=== PATIENT | male | born 1950 | race Caucasian/White ===

== ENCOUNTER 2017-12-19 06:20 | Emergency (ER) | payer OTHER, SELFPAY ==
[2017-12-19 06:24] VITALS: BP 171/96; PULSE 87; RESP 16; TEMP 36.5; O2SAT 96; BMI 23.3
--- NOTE | 2017-12-19 06:37 | RAD_ITS ---
STUDY: X-RAY - PELVIS REASON FOR EXAM: Male, 67 years old. Pain TECHNIQUE: One view of the pelvis was obtained. COMPARISON: None. FINDINGS: There is a non-specific bowel gas pattern. There are atherosclerotic vascular calcifications of the pelvic arteries. There is narrowing with cortical sclerosis and osteophyte formation of the sacroiliac joint consistent with degenerative osteoarthritic changes. Normal visualized bilateral superior and inferior pubic rami. Normal pubic symphysis. Normal ischial tuberosities. Normal visualized right femoral head. Normal right acetabulum. There is mild articular joint space narrowing of the right hip. Normal visualized left femoral head. Normal left acetabulum. There is mild articular joint space narrowing of the left hip. RAD/Pelvis 1 or 2 Views IMPRESSION: Mild, age consistent arthrosis, no demonstrated fracture or aggressive osseous lesion. Electronically Signed: Pierce Soares MD at 7:48 EDT , Service support ,
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
[2017-12-19 06:38] VITALS: BP 186/96; PULSE 89; RESP 19; O2SAT 97
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
[2017-12-19 06:40] LABS: Bedside Glucose 232 mg/dL (70-110)
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
[2017-12-19 06:58] LABS: Absolute Lymphocyte Count 1.12 X10^3/ul (0.83-4.51); Absolute Neutrophil Count 8.4 X10^3/uL (2.0-7.7); Basophil# 0.04 X10^3/uL; Basophil% 0.4 % (0-1); Eosinophil# 0.15 X10^3/uL; Eosinophils% 1.4 % (0-5); Hematocrit 35.3 % (40-54); Lymphocyte # 1.12 X10^3/ul (4.0); Lymphocyte % 10.7 % (19-41); Mean Corpuscular Hgb 29.1 pg (27.0-32.0); Mean Corpuscular Volume 85.7 fL (80-94); Mean Platelet Vol. 9.6 fl (6.2-12.0); Monocyte% 6.7 % (0-10); Neutrophil # 8.37 X10^3/uL (2.7-7.7); Neutrophil % 80.3 % (47-70); Platelet Count 224 K/mm3 (150-450); RBC Distribution Width CV 11.5 % (11.6-14.6); RBC Distribution Width SD 35.2 fl (35.1-43.9); Red Blood Count 4.12 M/mm3 (4.6-6.2); White Blood Count 10.4 K/mm3 (4.4-11.0)
[2017-12-19 06:59] VITALS: BP 170/88; PULSE 89; RESP 18; O2SAT 96
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
[2017-12-19 07:00] LABS: POSITIVE COUNT NO; POSITIVE DIFFERENTIAL NO; POSITIVE MORPHOLOGY NO
[2017-12-19] MEDS: 0.9% Normal Saline 1,000 ML 999 ML IV (07:00)
[2017-12-19] MEDS: Diphth,Pertuss(Acell),Tet Vac 0.5 ML Vial IM (07:00)
[2017-12-19 07:08] LABS: International Normalized Ratio 1.2
[2017-12-19] MEDS: fentaNYL 100 MCG/2 ML Ampul 50 MCG IV ×2 (07:08→08:39)
[2017-12-19 07:09] LABS: Anion Gap 7 (5-15); BUN 23 mg/dL (7-18); BUN/Creat Ratio 15.2 RATIO (10-20); Calcium,Total 8.3 mg/dL (8.5-10.1); Chloride 108 mmol/L (98-107); Creatinine, Serum 1.51 mg/dL (0.70-1.30); EST Glomerular Filtration Rate 49 mL/min (>60); Est Glom Filt Rate - Afr Amer 59 mL/min (>60); Estimated Creatinine Clearance 42.25 ml/min; Glucose 232 mg/dL (74-106); Partial Thromboplast Time 30.4 Seconds (24.1-36.2); Potassium 3.8 mmol/L (3.5-5.1); Sodium Level 144 mmol/L (136-145)
[2017-12-19 07:10] LABS: Alcohol, Blood (Medical)-Serum < 3.0 mg/dL
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
[2017-12-19 08:06] VITALS: BP 168/91; PULSE 92; RESP 16; O2SAT 96
[2017-12-19 08:25] VITALS: BP 170/91; PULSE 91; RESP 16; O2SAT 96
== END 2017-12-19 08:50 | disposition short-term general hospital (02) ==
LOC: ED 06:48
PROVIDERS: Emergency Provider Emergency Medicine; Family Provider Family Medicine; PCP Family Medicine
DX: S02.32XA Fracture of orbital floor, left side, initial encounter for closed fracture (principal); S02.2XXA Fracture of nasal bones, initial encounter for closed fracture; S22.41XA Multiple fractures of ribs, right side, initial encounter for closed fracture; S36.112A Contusion of liver, initial encounter; S37.812A Contusion of adrenal gland, initial encounter; S01.112A Laceration without foreign body of left eyelid and periocular area, initial encounter; S51.822A Laceration with foreign body of left forearm, initial encounter; V43.52XA Car driver injured in collision with other type car in traffic accident, initial encounter; Y93.9 Activity, unspecified; Y92.9 Unspecified place or not applicable; Y99.9 Unspecified external cause status; Z23 Encounter for immunization; E11.9 Type 2 diabetes mellitus without complications; F17.200 Nicotine dependence, unspecified, uncomplicated; Z79.84 Long term (current) use of oral hypoglycemic drugs
CPT/HCPCS: 70450; 71045; 71260; 72125; 72170; 73090; 73590; 74177; 80048; 80320; 82962; 85025; 85610; 85730; 90715; 93005; 96361; 96374; 96376; 99285; J7030; Q9967; A4216; G0480

== ENCOUNTER 2018-05-20 09:58 | Day surgery (SDC) | payer OTHER, SELFPAY ==
[2018-05-20 10:26] VITALS: BP 130/75; PULSE 72; RESP 16; TEMP 36.7; O2SAT 99; BMI 22.5
[2018-05-20 10:36] LABS: Bedside Glucose 129 mg/dL (70-110)
--- NOTE | 2018-05-20 12:14 | LES_PTH ---
PATIENT: KYLIE DURBIN LOC: [facility] [place] U#:[id number] AGE/SX: 67/M ROOM: RE05/20/[address]: Dr. Andrea Kumar MD : 1950 BED: DIS: 05/20/2018 SPEC #: [id number] RECD: 05/20/18 12:19 STATUS: GOLD HUONG #: [id number] STEFFANIE: 05/20/18 12:[address]: Andrea Kumar DEPT: SURGICAL PATHOLOGY RECD BY: Dillan Vu ENTERED: 05/20/18 13:29 SP TYPE: Lesion OTHR DR: Dr. Gasper Kenny MD Tissues: A - Skin of wrist and hand B - Skin of forearm, NOS C - Skin of forearm, NOS D - Skin of wrist and hand Procedures: Frozen Section (charge) Surgery Specimen Level IV Frozen (no charge) HEADER OPERATION: Excision of actinic keratosis, right wrist with frozen section PRE-OP DIAGNOSIS: Lesion dorsal radial aspect, right wrist, lesion dorsal ulnar aspect mid left forearm, personal history of skin can cancer POST-OP DIAGNOSIS: Actinic keratosis dorsal ulnar aspect mid left forearm, actinic keratosis dorsal radial aspect right wrist TISSUE SUBMITTED: A. Dorsal radial aspect, right wrist, FS, B. Dorsal ulnar aspect mid left forearm lesion, FS, C. Actinic keratosis dorsal ulnar aspect mid left forearm, suture at 12 o'clock, D. Actinic keratosis dorsal radial aspect, right wrist, suture at 12 o'clock FROZEN SECTION DIAGNOSIS A. Right wrist skin lesion, shave biopsy: Actinic change, solar elastosis B. Left forearm skin lesion, shave biopsy: Actinic change, solar elastosis AM:nupur 05/20/18 MICROSCOPIC DIAGNOSIS A. Skin lesion dorsal radial aspect of right wrist, shave biopsy: Actinic keratosis, hyperkeratosis and solar elastosis. B. Skin lesion ulnar aspect of mid left forearm, shave biopsy: Actinic keratosis and solar elastosis. MERYL:tali 05/21/18 MICROSCOPIC DESCRIPTION Slides are reviewed. GROSS DESCRIPTION A. Received fresh for frozen section diagnosis labeled with the patient's name is a specimen designated dorsal radial aspect right wrist lesion. The specimen consists of a shave biopsy of quezada-white skin measuring 1 x 0.6 x 0.1 cm. The specimen is inked, bisected and submitted entirely for frozen section diagnosis in one cassette. B. Received fresh for frozen section diagnosis labeled with the patient's name is a specimen designated dorsal ulnar aspect mid left forearm lesion. The specimen consists of a shave biopsy of quezada-white skin measuring 0.7 x 0.5 x 0.1 cm. The specimen is inked, bisected and submitted entirely for frozen section diagnosis in one cassette. /05/20/18 TC: 3 C. Received in fixative is one container labeled with the patient's name and designated actinic keratoses dorsoulnar aspect mid right forearm, suture at 12 o'clock. The specimen consists of a quezada-white skin ellipse measuring 3 x 0.7 cm and 0.2 cm in thickness. The specimen is oriented by a suture at 12 o'clock. The specimen is inked as follows: 12 o'clock - yellow, 6 o'clock - green, 3 o'clock margin - black, 9 o'clock margin - blue. Focal area of ulceration is noted. The entire specimen is submitted as follows: 1 - six and twelve o'clock, 2 - rest of the specimen. These will be sectioned at the time of embedding. D. Received in fixative is one container labeled with the patient's name and designated actinic keratosis dorsal radial aspect right wrist, suture at 12 o'clock. The specimen consists of an irregular piece of quezada-white skin measuring 1.5 x 1 cm and up to 0.2 cm in thickness. The specimen is inked as follows: 12 o'clock margin - black, 6 o'clock margin - blue, 3 o'clock margin - green, 9 o'clock margin - yellow. Focal area of ulceration is noted on the surface. The entire specimen is submitted in 1 cassette. It will be serially sectioned at the time of embedding. :sp 05/21/18 TC: CPT: 70758 x2, 41948 x2 ADDENDUM ADDENDUM ADDENDUM ADDENDUM ADDENDUM ADDENDUM ADDENDUM ADDENDUM ADDENDUM ADDENDUM ADDENDUM ADDENDUM 05/23/2018 14:29 ADDENDUM 05/23/2018 14:29 ADDENDUM 05/23/2018 14:29 ADDENDUM 05/23/2018 14:29 ADDENDUM 05/23/2018 14:29 C. Skin lesion, ulnar aspect mid left forearm, excision: Ulcer consistent with recent biopsy. Actinic change and solar elastosis. D. Radial aspect right wrist, excision: Ulcer consistent with recent biopsy. Actinic change and solar elastosis. AM:tali 05/23/18 Case has been reviewed in consultation with Dr. Ojeda who concurs with the above diagnosis. IDC:SJ
[2018-05-20] MEDS: Mupirocin Ointment 22gm Tube 1 APPLIC (13:00)
--- NOTE | 2018-05-20 13:19 | OP.PN_ITS ---
Immediate Post-Op Note Date of Procedure: 05/20/18 Primary Surgeon/Physician: Andrea Kumar carbon electrodes supervisor: None Pre-Operative Diagnosis: 1. 8 mm pigmented lesion dorsal radial aspect right wrist. 2. 6 mm nodular lesion dorsal ulnar aspect mid left forearm. 3. Personal history of skin cancer. 4. Former smoker. Post-Operative Diagnosis: 1. 8 mm actinic keratosis dorsal radial aspect right wrist. 2. 6 mm actinic keratosis dorsal ulnar aspect mid left forearm. 3. Personal history of skin cancer. 4. Former smoker. Surgery/Procedure Performed:: 1. Excision 8 mm actinic keratosis dorsal radial aspect right wrist with rhomboid transposition skin flap reconstruction. 2. Excision 6 mm actinic keratosis dorsal ulnar aspect mid left forearm with 3 cm layered closure. Description of Surgical Findings:: 67 year old man presents for evaluation for TBSE. He has recently used Aldara cream on his nasal dorsum with a good response with redness and inflammation. He also noticed an area of rough skin on his right lateral forehead that he also used Aldara on. He comes in with concerns that he is having a bad reaction to the Aldara cream. I reassured him it was a common response. Some patients have more of a response and some have a lesser response. He states the lesions on his dorsal radial aspect right wrist and dorsal ulnar aspect mid left forearm have not changed since his last visit a month ago. He is scheduled for surgery next week on 05/20/18. Today the redness and inflammation from the Aldara is still present on the nasal dorsum and right lateral forehead so no biopsies in these areas will be done today. 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 He denies any fever. He denies any trauma. He had the lesions on the dorsal ulnar aspect mid left forearm and dorsal radial aspect right wrist excised and sent to Pathology as a frozen section. Frozen section showed the dorsal ulnar aspect mid left forearm lesion was an actinic keratosis and the dorsal radial aspect right wrist lesion was an actinic keratosis. Today the patient underwent excision 8 mm actinic keratosis dorsal radial aspect right wrist with rhomboid transposition skin flap reconstruction and excision 6 mm actinic keratosis dorsal ulnar aspect mid left forearm with 3 cm layered closure. Frozen section dorsal ulnar aspect mid left forearm - actinic keratosis. Frozen section dorsal radial aspect right wrist - actinic keratosis. Estimated Blood Loss: 10 ml. Specimen's removed: 1. Lesion dorsal ulnar aspect mid left forearm to Pathology as a frozen section. 2. Lesion dorsal radial aspect right wrist to Pathology as a frozen section. 3. Actinic keratosis dorsal ulnar aspect mid left forearm to Pathology. 4. Actinic keratosis dorsal radial aspect right wrist to Pathology. Drains: None. Type of Anesthesia:: Local MAC - xylocaine with epinephrine and IV sedation. - Admit VTE Documentation VTE Present on Admission: No VTE Mechan Device Prophylaxis: SCD's VTE Pharm Prophylaxis ordered?: No
[2018-05-20 13:20] VITALS: BP 116/62; BP 130/75; PULSE 67; RESP 16; TEMP 36.6; O2SAT 95
[2018-05-20 13:25] VITALS: BP 115/79; BP 130/75; PULSE 69; RESP 16; O2SAT 96
--- NOTE | 2018-05-20 13:25 | PCM.DC ---
You will use the following diet at home:: No restrictions Discharge Activity: May not drive while taking narcotic pain medications., May Shower - in two days., - - no heavy lifting. elevate arms when sitting. May shower in (days): 2 May resume sexual activity in: No Restrictions Weight Bearing Status: Weight bearing as tolerated Lifting Restrictions: 20 lbs. Keep extremity elevated above heart level: Arms Call your doctor if your incision/area has: Continuous Slow Oozing, Sudden Increased Bleeding, Increased Pain/ Swelling, Increased Redness, Foul Smelling Discharge, Swelling at the incision site Call your doctor if you observe: Fever of 101 or Higher, Coldness, Increased Pain, Shortness of breath, Chest pain, Calf discomfort, Uncontrolled pain Suture Line Care: - - after dressing removed in two days, apply antibiotic ointment to suture line daily. Change Dressing in (Days):: 2 Cleanse incision/area with: - - may get incisions wet in the shower in two days. Allergies/Adverse Reactions: Allergies Sulfa (Sulfonamide Antibiotics) Allergy (Verified 05/15/18 16:46) Rash Medications to take at Discharge Metformin HCl [Glucophage] 500 mg PO DAILY 12/19/17 Vit C/E/Zn/Coppr/Lutein/Zeaxan [Preservision Areds 2 Softgel] 1 ea PO DAILY 05/13/18 Cefadroxil [Duricef] 500 mg PO BID #10 cap 05/20/18 Lactobacillus Acidophilus/Fos [Acidophilus Probiotic Tablet] 1 ea PO BID #10 tab 05/20/18 Oxycodone HCl/Acetaminophen [Percocet 5/325] 1 tab PO 4X/DAY PRN PRN 7 Days #30 tab 05/20/18 The following prescriptions were given: Oxycodone HCl/Acetaminophen [Percocet 5/325] 1 tab PO 4X/DAY PRN PRN 7 Days #30 tab PRN Reason: Pain Cefadroxil [Duricef] 500 mg PO BID #10 cap Lactobacillus Acidophilus/Fos [Acidophilus Probiotic Tablet] 1 ea PO BID #10 tab Primary Care Physician: Gasper Kenny MD [Primary Care Provider] - Test Results: Test results from this visit will be discussed in further detail at your follow-up appointment, if applicable. Please Follow Up With: Andrea Kumar MD When: one week. call [phone] for appt. Proposed Discharge Date: 05/20/18
--- NOTE | 2018-05-20 13:28 | DCINST_ITS ---
You will use the following diet at home:: No restrictions Discharge Activity: May not drive while taking narcotic pain medications., May Shower - in two days., - - no heavy lifting. elevate arms when sitting. May shower in (days): 2 May resume sexual activity in: No Restrictions Weight Bearing Status: Weight bearing as tolerated Lifting Restrictions: 20 lbs. Keep extremity elevated above heart level: Arms Call your doctor if your incision/area has: Continuous Slow Oozing, Sudden Increased Bleeding, Increased Pain/ Swelling, Increased Redness, Foul Smelling Discharge, Swelling at the incision site Call your doctor if you observe: Fever of 101 or Higher, Coldness, Increased Pain, Shortness of breath, Chest pain, Calf discomfort, Uncontrolled pain Suture Line Care: - - after dressing removed in two days, apply antibiotic ointment to suture line daily. Change Dressing in (Days):: 2 Cleanse incision/area with: - - may get incisions wet in the shower in two days. Allergies/Adverse Reactions: Allergies Sulfa (Sulfonamide Antibiotics) Allergy (Verified 05/15/18 16:46) Rash Medications to take at Discharge Metformin HCl [Glucophage] 500 mg PO DAILY 12/19/17 Vit C/E/Zn/Coppr/Lutein/Zeaxan [Preservision Areds 2 Softgel] 1 ea PO DAILY 05/13/18 Cefadroxil [Duricef] 500 mg PO BID #10 cap 05/20/18 Lactobacillus Acidophilus/Fos [Acidophilus Probiotic Tablet] 1 ea PO BID #10 tab 05/20/18 Oxycodone HCl/Acetaminophen [Percocet 5/325] 1 tab PO 4X/DAY PRN PRN 7 Days #30 tab 05/20/18 The following prescriptions were given: Oxycodone HCl/Acetaminophen [Percocet 5/325] 1 tab PO 4X/DAY PRN PRN 7 Days #30 tab PRN Reason: Pain Cefadroxil [Duricef] 500 mg PO BID #10 cap Lactobacillus Acidophilus/Fos [Acidophilus Probiotic Tablet] 1 ea PO BID #10 tab Primary Care Physician: Gasper Kenny MD [Primary Care Provider] - Test Results: Test results from this visit will be discussed in further detail at your follow- up appointment, if applicable. Please Follow Up With: Andrea Kumar MD When: one week. call [phone] for appt. Proposed Discharge Date: 05/20/18
[2018-05-20 13:30] VITALS: BP 130/75; BP 135/81; PULSE 67; RESP 16; O2SAT 95
[2018-05-20 13:35] VITALS: BP 122/75; BP 130/75; PULSE 68; RESP 16; TEMP 36.9; O2SAT 96
--- NOTE | 2018-05-20 13:40 | PCM.WORK.EX ---
Work/School Excuse Work/School Excuse for:: Patient Please excuse this person from:: Work From: 05/20/18 through: 05/22/18 Restrictions: Other - keep incisions covered with lilia wraps while working.
[2018-05-20 14:27] VITALS: BP 130/75
--- NOTE | 2018-05-20 22:03 | PCM.OPRPT ---
Report of Operation Date of Procedure: 05/20/18 Pre-Operative Diagnosis: 1. 8 mm pigmented lesion dorsal radial aspect right wrist. 2. 6 mm nodular lesion dorsal ulnar aspect mid left forearm. 3. Personal history of skin cancer. 4. Former smoker. Post-Operative Diagnosis: 1. 8 mm actinic keratosis dorsal radial aspect right wrist. 2. 6 mm actinic keratosis dorsal ulnar aspect mid left forearm. 3. Personal history of skin cancer. 4. Former smoker. Surgery/Procedure Performed:: 1. Excision 8 mm actinic keratosis dorsal radial aspect right wrist with rhomboid transposition skin flap reconstruction. 2. Excision 6 mm actinic keratosis dorsal ulnar aspect mid left forearm with 3 cm layered closure. Description of Surgical Findings:: 67 year old man presents for evaluation for TBSE. He has recently used Aldara cream on his nasal dorsum with a good response with redness and inflammation. He also noticed an area of rough skin on his right lateral forehead that he also used Aldara on. He comes in with concerns that he is having a bad reaction to the Aldara cream. I reassured him it was a common response. Some patients have more of a response and some have a lesser response. He states the lesions on his dorsal radial aspect right wrist and dorsal ulnar aspect mid left forearm have not changed since his last visit a month ago. He is scheduled for surgery next week on 05/20/18. Today the redness and inflammation from the Aldara is still present on the nasal dorsum and right lateral forehead so no biopsies in these areas will be done today. 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 He denies any fever. He denies any trauma. Patient was informed of the risks and complications of the procedure including alternatives to surgery. These were discussed with the patient personally. Patient voices understanding and wishes to proceed. Some of the risks and complications were included in a form from the [employer]. Frozen section dorsal ulnar aspect mid left forearm - actinic keratosis. Frozen section dorsal radial aspect right wrist - actinic keratosis. 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 Specimen's removed: 1. Lesion dorsal ulnar aspect mid left forearm to Pathology as a frozen section. 2. Lesion dorsal radial aspect right wrist to Pathology as a frozen section. 3. Actinic keratosis dorsal ulnar aspect mid left forearm to Pathology. 4. Actinic keratosis dorsal radial aspect right wrist to Pathology. Drains: None. Estimated Blood Loss (mL): 10 ml. Description of Procedure: Patient was taken to OR in supine position and was given IV sedation. The left forearm and right wrist were prepped and draped in the usual fashion. SCD's were placed for DVT prophylaxis. Perioperative antibiotics were given intravenously. The lesions dorsal ulnar aspect mid left forearm and dorsal radial aspect right wrist were infiltrated with xylocaine and epinephrine. After waiting 5 minutes for the anesthetic to take effect, both lesions were excised in an intradermal fashion. They were sent to Pathology as a frozen section. Frozen section showed the lesions dorsal ulnar aspect mid left forearm and dorsal radial aspect right wrist were both actinic keratoses. So further excision will be done. The actinic keratoses were excised with a 2 mm margin in all directions thus making the dorsal ulnar aspect mid left forearm lesion a 1 cm excision with 3 cm layered closure and the dorsal radial aspect right wrist lesion a 1.2 cm excision with rhomboid skin flap reconstruction. The lesions were excised into the subcutaneous tissue. A suture was marked at the 12 oclock position for pathology orientation. The lesions were then sent to Pathology for analysis to rule out carcinoma. For the dorsal ulnar aspect mid left forearm lesion a 3 cm oblique elliptical excision was done. For the dorsal radial aspect right wrist lesion a rhomboid excision was done. A rhomboid flap was designed adjacent to the lesion. Incisions were made and the flap was elevated on a subcutaneous pedicle at the level of the muscular fascia. The rhomboid flap was easily transposed into the defect with minimal tension and minimal distortion. Hemostasis was obtained with electrocautery for both lesions. Both wounds were closed in a layered closure fashion with 5-0 Monocryl interrupted sutures for the deep dermis and subcutaneous tissue. The skin was approximated with 5-0 Prolene simple interrupted sutures. Antibiotic ointment was applied to the incisions followed by gauze dressing and compression lilia wraps. Patient tolerated the procedure well and was sent to PACU in satisfactory condition. Patient will be sent home on antibiotics and pain medication. Patient will keep his hands elevated when sitting. Patient will followup in a week for a wound check and for discussion of the pathology report. The sutures will be removed in two weeks. Grafts/Implants Used: None. - Complications None. - Admit VTE Documentation VTE Present on Admission: No VTE Mechan Device Prophylaxis: SCD's VTE Pharm Prophylaxis ordered?: No Code Visit Surgery Charges CPT - 97028 ICD-10 - L57.0, Z85.828, Z87.891 40442 L57.0, Z85.828, Z87.891 20514 L57.0, Z85.828, Z87.891
== END 2018-05-20 14:28 | disposition home or self-care (01) ==
LOC: SDC 09:58 → AC 10:00
PROVIDERS: Family Provider Family Medicine; PCP Family Medicine; Referring Provider Surgery; Visit Provider Surgery
PROC: (CPT 11401; principal; 2018-05-20 11:15)
DX: L57.0 Actinic keratosis (principal); L85.9 Epidermal thickening, unspecified; L57.8 Other skin changes due to chronic exposure to nonionizing radiation; W89.9XXA Exposure to unspecified man-made visible and ultraviolet light, initial encounter; Y93.9 Activity, unspecified; Y92.9 Unspecified place or not applicable; Y99.9 Unspecified external cause status; E11.9 Type 2 diabetes mellitus without complications; R35.0 Frequency of micturition; Z79.84 Long term (current) use of oral hypoglycemic drugs; Z79.899 Other long term (current) drug therapy; Z85.828 Personal history of other malignant neoplasm of skin; Z87.891 Personal history of nicotine dependence
CPT/HCPCS: 00400; 11401; 12032; 14020; 82962; 88305; 88331; J7120

== ENCOUNTER → 2018-10-04 08:52 | Outpatient (CLI) | payer OTHER, SELFPAY ==
[2018-08-28 15:51] VITALS: BMI 24.1
[2018-10-04 09:39] LABS: Color, Urine Yellow (Yellow); Glucose, Dipstick 50 mg/dl (Normal); Ketone-Dipstick Negative (Negative); Leukocyte Esterase-Dipstick Negative /ul (Negative); Nitrite-Dipstick Negative (Negative); Occult Blood-Urine Negative /ul (Negative); Protein-Dipstick Negative (Negative); Specific Gravity, Urine 1.015 (1.002-1.030); Urine Bilirubin Dipstick Negative (Negative); Urine Clarity Clear (Clear); Urine Urobilinogen Normal (Normal)
[2018-10-04 09:40] LABS: Absolute Lymphocyte Count 1.27 X10^3/ul (0.83-4.51); Absolute Neutrophil Count 3.3 X10^3/uL (2.0-7.7); Basophil# 0.05 X10^3/uL; Eosinophil# 0.18 X10^3/uL; Eosinophils% 3.4 % (0-5); Hemoglobin 13.3 g/dl (13.0-16.5); Lymphocyte # 1.27 X10^3/ul (4.0); Lymphocyte % 24.1 % (19-41); Mean Corp Hgb Conc 34.1 g/gl (32-36); Mean Corpuscular Hgb 28.4 pg (27.0-32.0); Mean Corpuscular Volume 83.2 fL (80-94); Mean Platelet Vol. 9.9 fl (6.2-12.0); Monocyte% 9.5 % (0-10); Neutrophil # 3.25 X10^3/uL (2.7-7.7); Neutrophil % 61.8 % (47-70); POSITIVE COUNT NO; POSITIVE DIFFERENTIAL NO; POSITIVE MORPHOLOGY NO; Platelet Count 229 K/mm3 (150-450); RBC Distribution Width CV 11.8 % (11.6-14.6); RBC Distribution Width SD 35.6 fl (35.1-43.9); Red Blood Count 4.69 M/mm3 (4.6-6.2); White Blood Count 5.3 K/mm3 (4.4-11.0)
[2018-10-04 10:02] LABS: Hemoglobin A1c 7.7 % (4.2-6.3)
[2018-10-04 10:08] LABS: AST(SGOT) 15 U/L (15-37); Alanine Aminotransfer ALT/SGPT 18 U/L (16-61); Albumin, Serum 3.6 g/dL (3.2-5.0); Alkaline Phosphatase 73 U/L (45-117); Anion Gap 6 (5-15); BUN 35 mg/dL (7-18); BUN/Creat Ratio 22.4 RATIO (10-20); Calcium,Total 8.8 mg/dL (8.5-10.1); Chloride 107 mmol/L (98-107); Cholesterol 161 mg/dL (200); Creatinine, Serum 1.56 mg/dL (0.70-1.30); EST Glomerular Filtration Rate 47 mL/min (>60); Est Glom Filt Rate - Afr Amer 57 mL/min (>60); Globulin 3.6 g/dL (2.2-4.2); Glucose 136 mg/dL (74-106); High Density Lipoprotein 43 mg/dL; PSA,Total - Annual Screen 1.24 ng/mL (0.00-4.00); Potassium 4.6 mmol/L (3.5-5.1); Protein, Total 7.2 g/dL (6.4-8.2); Sodium Level 141 mmol/L (136-145); Triglycerides 97 mg/dL; Very Low Density Lipoprotein 19 mg/dL (5-40)
== END ==
PROVIDERS: Family Provider Family Medicine; PCP Family Medicine; Referring Provider Family Medicine; Visit Provider Family Medicine
DX: Z00.00 Encounter for general adult medical examination without abnormal findings (principal); E11.65 Type 2 diabetes mellitus with hyperglycemia; Z12.5 Encounter for screening for malignant neoplasm of prostate
CPT/HCPCS: 36415; 80053; 80061; 81002; 83036; 84153; 85025; G0103

== ENCOUNTER → 2019-05-25 16:18 | Outpatient (CLI) | payer OTHER, SELFPAY ==
[2019-03-12 16:43] VITALS: BMI 24.1
--- NOTE | 2019-05-25 16:21 | US_ITS ---
STUDY: RENAL ULTRASOUND - COMPLETE REASON FOR EXAM: Male, 68 years old. Back pain TECHNIQUE: Ultrasound evaluation of the kidneys was performed with real-time and static nagel-scale imaging. COMPARISON: CT abdomen and pelvis 12/19/2017. FINDINGS: RIGHT KIDNEY: Normal location of the right kidney, which is normal in size. The right kidney measures 10 cm. There is a normal cortex of the right kidney. The renal cortex measures 1.2 cm. There are right renal cysts largest measuring 2.5 x 2.5 x 2.1 cm. There are smaller subcentimeter cysts some of which are too small to characterize. There are punctate echogenic foci within the right kidney. There is no right hydronephrosis. DISTAL RIGHT URETER: There is nonvisualization of the distal right ureter or ureteral jet.. LEFT KIDNEY: Normal location of the left kidney, which is normal in size. The left kidney measures 11 cm. There is a normal cortex of the left kidney. The renal cortex measures 1.6 cm. There is no left renal mass or cyst. There are punctate echogenic foci within the left kidney. There is mild left hydronephrosis. DISTAL LEFT URETER: There is non-visualization of the distal left ureter. No ureteral jet is visualized. BLADDER: The distended urinary bladder has a volume of 28.91 ml. The empty urinary bladder has a volume of 6.9 ml. There is a normal wall thickness of the distended urinary bladder. There is no demonstrated mass within the urinary bladder. There are no demonstrated bladder calculi. US/Kidney and Bladder IMPRESSION: Right renal cysts Punctate bilateral echogenic foci, renal calculi versus vasculature Nonvisualization of the bilateral ureters, no ureteral jets Mild left hydronephrosis, that should be further evaluated with CT abdomen and pelvis to exclude obstruction Electronically Signed: Gume Hernandez, at 1:36 EST Tel , Service support ,
[2019-05-25 18:07] LABS: Anion Gap 5 (5-15); BUN 29 mg/dL (7-18); BUN/Creat Ratio 20.3 RATIO (10-20); Calcium,Total 8.9 mg/dL (8.5-10.1); Chloride 107 mmol/L (98-107); Creatinine, Serum 1.43 mg/dL (0.70-1.30); EST Glomerular Filtration Rate 52 mL/min (>60); Est Glom Filt Rate - Afr Amer 63 mL/min (>60); Glucose 111 mg/dL (74-106); Potassium 3.8 mmol/L (3.5-5.1); Sodium Level 140 mmol/L (136-145)
[2019-05-27 16:08] LABS: Cytoplasmic Ab (C-ANCA) <1:20 titer (Neg:<1:20); PROEL- A/G Ratio 1.2 (0.7-1.7); PROEL- Albumin 3.8 g/dL (2.9-4.4); PROEL- Alpha-1 Globulin 0.2 g/dL (0.0-0.4); PROEL- Alpha-2 Globulin 0.6 g/dL (0.4-1.0); PROEL- Beta Globulin 0.9 g/dL (0.7-1.3); PROEL- Gamma Globulin 1.4 g/dL (0.4-1.8); PROEL- Globulin, Total 3.1 g/dL (2.2-3.9); PROEL- TOTAL PROTEIN 6.9 g/dL (6.0-8.5)
[2019-05-27 18:46] LABS: Complement C3 84 mg/dL (82-167); Perinuclear Ab (P-ANCA) <1:20 titer (Neg:<1:20)
== END ==
PROVIDERS: Family Provider Family Medicine; PCP Family Medicine; Referring Provider Internal Medicine Nephrology; Visit Provider Internal Medicine Nephrology
DX: N18.3 Chronic kidney disease, stage 3 (moderate) (principal)
CPT/HCPCS: 36415; 76770; 80048; 84165; 86160; 86256

== ENCOUNTER → 2019-06-01 17:53 | Outpatient (CLI) | payer OTHER, SELFPAY ==
[2019-03-12 16:43] VITALS: BMI 24.1
--- NOTE | 2019-06-01 17:58 | CT_ITS ---
STUDY: CT ABDOMEN AND PELVIS WITHOUT CONTRAST REASON FOR EXAM: Male, 68 years old. Hydronephrosis, right flank pain RADIATION DOSAGE (If Supplied By Facility): CTDIvol = ( 6.05 ) mGy, DLP = ( 291.83 ) mGycm TECHNIQUE: Transaxial images were obtained from the dome of the diaphragm to the symphysis pubis without oral contrast, and without intravenous contrast. Sagittal and coronal images were reconstructed. Individualized dose optimization techniques were used for this CT. COMPARISON: 19 December 2017 FINDINGS: The visualized lung bases are unremarkable. The visualized portions of the heart are within normal limits. Normal liver. Normal gallbladder and extrahepatic biliary system. Normal spleen. Normal pancreas. Normal bilateral adrenal glands. There is a simple right renal cyst. There is left pelviectasis without hydronephrosis. There are no urinary calculi or hydronephrosis. Normal visualized stomach. Normal small intestine. Normal colon. The appendix is visualized and appears normal. Normal abdominal aorta. Normal inferior vena cava. Normal retroperitoneum. Normal urinary bladder. Normal abdominal wall. Normal osseous structures. There is stable grade 1 anterolisthesis of L4 on L5 with mild thecal sac stenosis. CT/Abdomen/Pelvis without Cont IMPRESSION: No acute abdominal findings. Electronically Signed: Carlton Richardson, at 18:22 EST Tel , Service support ,
== END ==
PROVIDERS: Family Provider Family Medicine; PCP Family Medicine; Referring Provider Internal Medicine Nephrology; Visit Provider Internal Medicine Nephrology
DX: N13.30 Unspecified hydronephrosis (principal)
CPT/HCPCS: 74176

== ENCOUNTER → 2019-12-03 15:54 | Outpatient (CLI) | payer OTHER, SELFPAY ==
[2019-03-12 16:43] VITALS: BMI 24.1
[2019-12-03 16:33] LABS: Hemoglobin 12.6 g/dL (13.0-16.5); Mean Corp Hgb Conc 33.2 g/dL (32-36); Mean Corpuscular Hgb 28.8 pg (27.0-32.0); Mean Corpuscular Volume 86.8 fL (80-94); Mean Platelet Vol. 9.7 fl (6.2-12.0); Platelet Count 217 K/mm3 (150-450); RBC Distribution Width CV 11.4 % (11.6-14.6); RBC Distribution Width SD 36.5 fl (35.1-43.9); Red Blood Count 4.38 M/mm3 (4.6-6.2); White Blood Count 5.8 K/mm3 (4.4-11.0)
[2019-12-03 17:01] LABS: PTHIN 95.3 pg/mL (18.4-80.1)
[2019-12-03 17:04] LABS: Vitamin D,25 Hydroxy 33.2 ng/mL
[2019-12-03 17:09] LABS: Albumin, Serum 3.8 g/dL (3.2-5.0); BUN 28 mg/dL (7-18); BUN/Creat Ratio 17.5 RATIO (10-20); Calcium,Total 8.6 mg/dL (8.5-10.1); Chloride 103 mmol/L (98-107); EST Glomerular Filtration Rate 46 mL/min (>60); Est Glom Filt Rate - Afr Amer 55 mL/min (>60); Glucose 121 mg/dL (74-106); Phosphorus 2.6 mg/dL (2.5-4.9); Potassium 4.6 mmol/L (3.5-5.1); Sodium Level 137 mmol/L (136-145)
[2019-12-03 17:39] LABS: Protein, Urine (Random) 11.6 mg/dL (<11.9); Protein:Creat Ratio 194 mg/g CRE (0-200)
== END ==
PROVIDERS: Visit Provider Internal Medicine Nephrology
DX: N18.3 Chronic kidney disease, stage 3 (moderate) (principal)
CPT/HCPCS: 36415; 80069; 82306; 82570; 83970; 84156; 85027

== ENCOUNTER 2020-03-11 08:35 | Day surgery (SDC) | payer OTHER, SELFPAY ==
[2020-02-18 16:25] VITALS: BMI 24.1
--- NOTE | 2020-03-11 | LES_PTH ---
PATIENT: KYLIE DURBIN LOC: [facility] [place] U#:[id number] AGE/SX: 69/M ROOM: RE03/11/[address]: Dr. Andrea Kumar MD : 1950 BED: DIS: 03/11/2020 SPEC #: [id number] RECD: 03/11/20 10:52 STATUS: GOLD HUONG #: [id number] STEFFANIE: 03/11/20 00:[address]: Andrea Kumar DEPT: SURGICAL PATHOLOGY RECD BY: Lizzette Bernal ENTERED: 03/11/20 11:57 SP TYPE: Lesion OTHR DR: Dr. Gasper Kenny MD Tissues: Skin of hand and finger, NOS Procedures: Frozen Section (charge) Surgery Specimen Level IV HEADER OPERATION: Excision cutaneous horn lesion dorsum hand near wrist PRE-OP DIAGNOSIS: 8 mm cutaneous horn lesion dorsum right hand near wrist at level of index finger TISSUE SUBMITTED: A - 8 mm cutaneous horn lesion dorsum right hand near wrist at level of index finger, suture at 12 o'clock, FS, B - Squamous cell CA, 8 mm cutaneous horn lesion dorsum right hand near wrist at level of index finger, suture at 12 o'clock FROZEN SECTION DIAGNOSIS A. Skin lesion, right hand dorsum, biopsy: Invasive squamous cell carcinoma. AM:gurpreet 03/11/20 Case has been reviewed in consultation with Dr. Ojeda who concurs with the above diagnosis. IDC:SJ MICROSCOPIC DIAGNOSIS A. Skin lesion of right dorsum, biopsy: Minimally invasive squamous cell carcinoma, nodular (2 mm). Actinic keratosis and extensive solar elastosis. Margins of excision are free of malignancy. B. Squamous cell carcinoma dorsum of right hand, re-excision: Actinic change and extensive solar elastosis. No evidence of malignancy. AM:gurpreet 03/15/20 MICROSCOPIC DESCRIPTION Slides are reviewed. GROSS DESCRIPTION A - Received fresh for frozen section diagnosis labeled with the patient's name is a specimen designated cutaneous arm lesion dorsum right hand near wrist. The specimen consists of a round piece of tanwhite skin measuring 1.2 cm in diameter and 0.2 cm in thickness. The specimen is oriented by a suture at 12 o'clock. The specimen is inked as follows: 12 o'clock - black and remainder of the specimen??blue. The specimen is serially sectioned and submitted entirely for frozen section diagnosis in one cassette. / AM:gurpreet 03/11/20 B - Received in fixative is one container labeled with the patient's name and designated squamous cell carcinoma, 8 mm cutaneous horn lesion dorsum right hand near wrist at level of index finger, suture at 12 o'clock. The specimen consists of a ring-shaped piece of quezada-white skin measuring 2.5 x 1.7 x 0.2 cm. The ring-shaped defect measures 1.6 x 1 cm. The specimen is oriented by a suture at 12 o'clock. The specimen is inked as follows: 12 to 3 o'clock - blue, 3 to 6 o'clock - black, 6 to 9 o'clock - green and 9 to 12 o'clock - yellow. The specimen is serially sectioned and submitted entirely in two cassettes. / SJ:gurpreet 03/11/20 TC:0 CPT: 56599 x2
--- NOTE | 2020-03-11 07:26 | PCM.HP.BLA ---
History and Physical Date of Admission: 03/11/20 HISTORY OF PRESENT ILLNESS 69 year old man presents for evaluation for TBSE. He has concerns about a lesion on the dorsum right hand near the wrist at the level of the index finger that has increased in size over the last several months and has become more raised in configuration and has developed a horn component. He denies trauma. He denies infection. He had a squamous cell carcinoma excised from his left thumb in 2017. Surgery was recommended for this lesion on the dorsum right hand near the wrist at the level of the index finger. He stated he needed to fix his roof first before proceeding with surgery. Now he states he will repair the roof next Spring. He hired someone to do a portion of the roof now. So he is ready to proceed with surgery. PAST MEDICAL HISTORY Neoplasm of skin of hand Squamous cell carcinoma of skin of left thumb Actinic keratosis Diabetes PAST SURGICAL HISTORY Squamous cell carcinoma actinic keratosis ALLERGIES Sulfa (Sulfonamide Antibiotics) MEDICATIONS NK FAMILY HISTORY negative for skin cancer. SOCIAL HISTORY Smoking Status: Former smoker patient does not drink alcohol. REVIEW OF SYSTEMS General - Denies fever, fatigue, and weight loss. Eyes - Denies cataracts and glaucoma. ENT - Denies nasal congestion and sore throat. Endocrine - Has excessive thirst and urination. Has diabetes mellitus. Skin - Has skin cancer. Has enlarging lesion dorsum right hand near the wrist at the level of the index finger. Musculoskeletal - Has joint pain, joint stiffness, weakness of muscles and joints and back pain. Denies arthritis. Neuro - Denies headaches. Has lightheadedness. Cardiovascular - Denies chest pain, fatigue, and shortness of breath with exertion. Has lightheadedness. Psych - Denies anxiety and depression. Respiratory - Denies chronic cough and shortness of breath. Patient is a former smoker. Gastrointestinal - Denies nausea, vomiting, diarrhea, and constipation. Hematologic - Denies abnormal bruising and bleeding. Genitourinary - Denies hematuria. Has urinary frequency. PHYSICAL EXAMINATION General-well developed, well nourished, in no acute distress. HEENT-pupils equal round and reactive to light. Extraocular muscles intact. Throat is clear. No suspicious lesions noted. Neck-supple and nontender. No masses. No cervical adenopathy. No suspicious lesions noted. Chest wall-no suspicious lesions noted. Lungs-clear to auscultation. Heart-regular rate and rhythm. Abdomen-soft and nondistended. No hernias. No suspicious lesions noted. Extremities-full range of motion. Patient is right-hand dominant. No axillary adenopathy. Radial pulses are palpable. On the dorsum right hand near the wrist at the level of the index finger is a cutaneous horn lesion that measures 8 mm. Slight raised in configuration. Is nodular. Has irregular borders. No ulceration. Lesion is nontender. Neurologic-cranial nerves II through XII grossly intact. ASSESSMENT 1. 8 mm cutaneous horn lesion dorsum right hand near the wrist at level of index finger. 2. Personal history of skin cancer. 3. History of actinic keratoses. 4. Former smoker. PLAN Recommend excising this lesion dorsum right hand near the wrist at level of index finger and send it to Pathology for analysis to rule out carcinoma. It has a cutaneous horn component so a full thickness excision will be done. If carcinoma is present then further excision will be done and reconstruction will be with a skin graft or a skin flap. Surgery can be done under local anesthesia and IV sedation on an outpatient basis. Patient was informed of the risks and complications of the procedure including alternatives to surgery. These were discussed with the patient personally. Patient voices understanding and wishes to proceed. Some of the risks and complications were included in a form from the [employer]. We discussed the current risks associated with COVID-19. While it is understood that there is a community spread of COVID-19, the risk of daryl COVID-19 while at [facility] ([facility]) is very low; however, the risk cannot be completely mitigated because of the community spread of the disease. We discussed in detail the risk of exposure to and/or potential harm posed by the COVID-19 virus with having a surgery/procedure at this time versus the risk of delaying the surgery/procedure. It is not possible to know either the risk of delaying the surgery or procedure or chance of getting an infection with perfect accuracy, but a joint decision was made to proceed at this time with the scheduled surgery/procedure as indicated on the consent form. Patient was notified that we will need to comply with any screening or testing [facility] wishes to perform or that surgery may be delayed for any positive results. Discussed with the patient that I was tested for COVID-19 on 01/07/20 which was negative and on 01/21/20 which was negative and on 02/04/20 which was negative and on 02/18/20 which was negative. My testing regimen at this time is to be COVID-19 tested every 2 weeks or so. I was recently tested on 03/03/20, and that test was negative. Procedure Criteria Procedure Type: Elective COVID Risk Discussion: The surgeon/proceduralist and patient have discussed in detail the risk of exposure to and/or potential harm posed by the COVID-19 virus with having a surgery/procedure at this time versus the risk of delaying the surgery/procedure. It is not possible to know either the risk of delaying the surgery or procedure or chance of getting an infection with perfect accuracy, but a joint decision was made between the patient and the surgeon/proceduralist to proceed at this time with the scheduled surgery/procedure as indicated on the consent form.
[2020-03-11 08:58] VITALS: BP 156/87; PULSE 71; RESP 16; TEMP 36.8; O2SAT 100; BMI 22.9
[2020-03-11 09:21] LABS: Bedside Glucose 129 mg/dL (70-110)
[2020-03-11] MEDS: Lactated Ringers 1,000 ML 100 ML IV ×2 (09:31→11:30)
[2020-03-11] MEDS: Cefazolin 2 GM in 0.9% Normal Saline 100 ML IV (10:29)
[2020-03-11] MEDS: Mupirocin Ointment 22gm Tube 1 APPLIC (10:46)
--- NOTE | 2020-03-11 11:33 | OP.PCM_ITS ---
Report of Operation Date of Procedure: 03/11/20 Pre-Operative Diagnosis: 1. 8 mm cutaneous horn lesion dorsum right hand near the wrist at level of index finger. 2. Personal history of skin cancer. 3. History of actinic keratoses. 4. Former smoker. Post-Operative Diagnosis: 1. 8 mm squamous cell carcinoma dorsum right hand near the wrist at level of index finger. 2. Personal history of skin cancer. 3. History of actinic keratoses. 4. Former smoker. Surgery/Procedure Performed:: Excision 8 mm squamous cell carcinoma dorsum right hand near the wrist at level of index finger with rhomboid transposition skin flap reconstruction (8 cm2). Description of Surgical Findings:: 69 year old man presents for evaluation for TBSE. He has concerns about a lesion on the dorsum right hand near the wrist at the level of the index finger that has increased in size over the last several months and has become more raised in configuration and has developed a horn component. He denies trauma. He denies infection. He had a squamous cell carcinoma excised from his left thumb in 2017. Surgery was recommended for this lesion on the dorsum right hand near the wrist at the level of the index finger. He stated he needed to fix his roof first before proceeding with surgery. Now he states he will repair the roof next Spring. He hired someone to do a portion of the roof now. So he is ready to proceed with surgery. Patient was informed of the risks and complications of the procedure including alternatives to surgery. These were discussed with the patient personally. Patient voices understanding and wishes to proceed. Some of the risks and complications were included in a form from the [employer]. Frozen section dorsum right hand near the wrist at level of index finger - squamous cell carcinoma. 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 Type of Anesthesia:: Local MAC - xylocaine with epinephrine and IV sedation. Specimen's removed: 1. Cutaneous horn lesion dorsum right hand near the wrist at level of index finger to Pathology as a frozen section. 2. Squamous cell carcinoma dorsum right hand near the wrist at level of index finger to Pathology. Drains: None. Estimated Blood Loss (mL): 10 ml. Description of Procedure: Patient was taken to OR in supine position and was given IV sedation. The right upper extremity was prepped and draped in the usual fashion. SCD's were placed for DVT prophylaxis. Perioperative antibiotics were given intravenously. For the procedure, I wore an N95 mask and wore proper eyewear protection. A tourniquet was placed on the arm. The lesion dorsum right hand near the wrist at level of index finger was infiltrated with xylocaine and epinephrine. After waiting 5 minutes for the anesthetic to take effect, I excised the cutaneous horn lesion in a circular fashion into the subcutaneous tissue. Suture was marked at the 12 oclock position for pathology orientation. The lesion was sent to Pathology as a frozen section for analysis to rule out carcinoma. Frozen section showed a squamous cell carcinoma. Additional excision was done with a 6 mm margin in all directions in a rhomboid fashion thus making it a 2 cm excision. A suture was marked at 12 oclock position for pathology orientation. The lesion was sent to Pathology for analysis to rule out carcinoma at the margins. A rhomboid flap was designed proximally over the wrist. The markings were infiltrated with xylocaine with epinephrine. Incisions were made and the rhomboid flap was elevated on a subcutaneous pedicle and easily transposed into the defect with minimal tension and minimal distortion. Hemostasis was obtained with electrocautery. The rhomboid flap was transposed into the defect and closed in a layered fashion with 3-0 Monocryl interrupted sutures for the deep dermis and subcutaneous tissue. The skin was approximated with 4-0 Nylon simple interrupted sutures. No vascular compromise noted on the skin flap. Antibiotic ointment was applied to the suture line followed by Xeroform gauze and 2x2 gauze and 2 inch Bell wrap followed by a compression lilia wrap. The size of the defect and the size of the flap needed to close the defect was 8 cm2. Patient tolerated the procedure well and was sent to PACU in satisfactory condition. Patient will be sent home on antibiotics and pain medication. He will keep his right hand elevated during the initial postoperative period. Patient will followup next week for a wound check and for discussion of the pathology report. The sutures will be removed in two weeks. Grafts/Implants Used: None. - Complications None. - Admit VTE Documentation VTE Present on Admission: No VTE Mechan Device Prophylaxis: SCD's VTE Pharm Prophylaxis ordered?: No Surgery Charges CPT - 11140 ICD-10 - C44.622, D49.2, L57.0, Z85.828, Z87.891
[2020-03-11 11:44] VITALS: BP 127/68; BP 156/87; PULSE 62; RESP 16; TEMP 36.1; O2SAT 97
[2020-03-11 11:50] VITALS: BP 127/68; BP 156/87; PULSE 61; RESP 16; O2SAT 97
[2020-03-11 11:55] VITALS: BP 136/72; BP 156/87; PULSE 60; RESP 16; O2SAT 97
--- NOTE | 2020-03-11 11:56 | PCM.DC ---
You will use the following diet at home:: No restrictions Discharge Activity: May not drive while taking narcotic pain medications., May Shower - wear plastic bag ove right hand when showering., - - elevate right hand. no heavy liftiing. May shower in (days): 1 - wear plastic bag over right hand when showering. May resume sexual activity in: No Restrictions Weight Bearing Status: Weight bearing as tolerated Lifting Restrictions: 20 lbs. Keep extremity elevated above heart level: Right Arm Call your doctor if your incision/area has: Continuous Slow Oozing, Sudden Increased Bleeding, Increased Pain/ Swelling, Increased Redness, Foul Smelling Discharge, Swelling at the incision site Call your doctor if you observe: Fever of 101 or Higher, Coldness, Increased Pain, Shortness of breath, Chest pain, Calf discomfort, Uncontrolled pain Change Dressing in (Days):: 5 - will remove operative dressing in office. Cleanse incision/area with: - - wear plastic bag over right hand when showering. Allergies/Adverse Reactions: Allergies Sulfa (Sulfonamide Antibiotics) Allergy (Verified 03/11/20 08:57) Rash Medications to take at Discharge Cefadroxil [Duricef] 500 mg PO BID #8 cap 03/11/20 Lactobacillus Acidophilus/Fos [Acidophilus Probiotic Tablet] 1 ea PO BID #20 tab 03/11/20 Oxycodone HCl/Acetaminophen [Percocet 5/325] 1 tab PO Q6H PRN PRN 7 Days #28 tab 03/11/20 The following prescriptions were given: Lactobacillus Acidophilus/Fos [Acidophilus Probiotic Tablet] 1 ea PO BID #20 tab Transmission Status: Received by [facility] Cefadroxil [Duricef] 500 mg PO BID #8 cap Transmission Status: Received by [facility] Oxycodone HCl/Acetaminophen [Percocet 5/325] 1 tab PO Q6H PRN PRN 7 Days #28 tab PRN Reason: Pain Score 6-10/10 Transmission Status: Sent to [facility] Primary Care Physician: Gasper Kenny MD [Primary Care Provider] - Test Results: Test results from this visit will be discussed in further detail at your follow-up appointment, if applicable. Please Follow Up With: Andrea Kumar MD When: saturday03/16/20. call [phone] for appt. Proposed Discharge Date: 03/11/20
[2020-03-11 12:00] VITALS: BP 141/80; BP 156/87; PULSE 63; RESP 16; TEMP 36.7; O2SAT 97
[2020-03-11 12:50] VITALS: BP 156/87; BP 178/89; PULSE 66; RESP 16; TEMP 36.1; O2SAT 100
== END 2020-03-11 13:00 | disposition home or self-care (01) ==
LOC: SDC 08:35 → AC 08:37
PROVIDERS: Anesthesiology; PCP Family Medicine; Referring Provider Surgery; Visit Provider Surgery
PROC: (CPT 14040; principal; 2020-03-11 10:00)
DX: C44.622 Squamous cell carcinoma of skin of right upper limb, including shoulder (principal); L57.0 Actinic keratosis; E11.9 Type 2 diabetes mellitus without complications; Z85.828 Personal history of other malignant neoplasm of skin; Z87.891 Personal history of nicotine dependence; Z11.59 Encounter for screening for other viral diseases
CPT/HCPCS: 00400; 14040; 82962; 87635; 88305; 88331; 94799; C9803; J7120; U0003

== ENCOUNTER 2020-03-11 23:02 | Emergency (ER) | payer OTHER, SELFPAY ==
[2020-03-11 08:58] VITALS: BMI 22.9
[2020-03-11 23:03] VITALS: BP 172/93; PULSE 73; RESP 17; TEMP 36.3; O2SAT 98; BMI 23.9
--- NOTE | 2020-03-11 23:20 | ED.DEP ---
ED Disposition - Plan for ED Patient: Instructions: ED Wound Check Post Op Bleeding Referrals: Gasper Kenny MD [Primary Care Provider] - Andrea Kumar MD [STAFF PHYSICIAN] -
--- NOTE | 2020-03-11 23:32 | ED.VISSUMM ---
- ER Visit Summary Date of Service: 03/11/20 Chief Complaint: Wound check History of Present Illness: The patient is a 69 M presenting for wound check. Patient had an excision of a right hand cutaneous lesion today per Dr. Kumar. He and his are concerned about possible continued bleeding. He noticed blood through the Lencho bandage. He has not needed to change the dressing. Denies other complaints. He is not on anticoagulants. Physical Examination: Vitals are stable. Patient is afebrile. Alert no acute distress. HEENT exam is unremarkable. Neck is supple. Lungs are clear and equal bilaterally. Heart is regular rate and rhythm. Abdomen is soft nontender nondistended. Extremities incision right dorsum hand clean dry and intact. No erythema or warmth. No active bleeding. Neurovascularly intact distally Skin is warm and dry. No focal neurologic deficit. Remainder of exam is unremarkable. Emergency Department Course and Treatment: He has no active bleeding. Dressing was reapplied. Discussed with Dr. Kumar. Patient will follow-up in the office. Advised return to ED for worsening complaints. Disposition: Discharge home Impression: Postop wound check This note was generated with [employer] dictation software. It may contain incorrect words, spelling, and punctuation that were not noted in review of the chart prior to signing ED Disposition - Plan for ED Patient: Disposition: Home or Assisted Living Instructions: ED Wound Check Post Op Bleeding Referrals: Andrea Kumar MD [STAFF PHYSICIAN] - Gasper Kenny MD [Primary Care Provider] -
== END 2020-03-11 23:42 | disposition home or self-care (01) ==
PROVIDERS: Emergency Provider Emergency Medicine; PCP Family Medicine
DX: Z48.00 Encounter for change or removal of nonsurgical wound dressing (principal)
CPT/HCPCS: 99282

== ENCOUNTER → 2020-03-31 16:03 | Outpatient (CLI) | payer OTHER, SELFPAY ==
[2020-03-22 15:59] VITALS: BMI 23.9
[2020-03-31 17:58] LABS: Absolute Lymphocyte Count 1.52 X10^3/uL (0.83-4.51); Absolute Neutrophil Count 3.6 X10^3/uL (2.0-7.7); Basophil# 0.06 X10^3/uL; Eosinophil# 0.22 X10^3/uL; Eosinophils% 3.7 % (0-5); Hematocrit 37.1 % (40-54); Hemoglobin 12.1 g/dL (13.0-16.5); Lymphocyte # 1.52 X10^3/ul (4.0); Lymphocyte % 25.6 % (19-41); Mean Corp Hgb Conc 32.6 g/dL (32-36); Mean Corpuscular Volume 85.9 fL (80-94); Mean Platelet Vol. 10.2 fl (6.2-12.0); Monocyte# 0.51 X10^3/uL; Monocyte% 8.6 % (0-10); NRBC Flagged by Analyzer 0 % (0-5); Neutrophil # 3.62 X10^3/uL (2.7-7.7); Neutrophil % 60.9 % (47-70); Platelet Count 211 K/mm3 (150-450); RBC Distribution Width CV 11.8 % (11.6-14.6); RBC Distribution Width SD 37.6 fl (35.1-43.9); Red Blood Count 4.32 M/mm3 (4.6-6.2); White Blood Count 5.9 K/mm3 (4.4-11.0)
[2020-03-31 18:05] LABS: Color, Urine Yellow (Yellow); Glucose, Dipstick Normal (Normal); Ketone-Dipstick Negative (Negative); Leukocyte Esterase-Dipstick Negative /ul (Negative); Nitrite-Dipstick Negative (Negative); Occult Blood-Urine Negative /ul (Negative); Protein-Dipstick 15 mg/dl (Negative); Urine Bilirubin Dipstick Negative (Negative); Urine Clarity Clear (Clear); Urine Urobilinogen Normal (Normal)
[2020-03-31 18:21] LABS: AST(SGOT) 19 U/L (15-37); Alanine Aminotransfer ALT/SGPT 21 U/L (16-61); Albumin, Serum 3.8 g/dL (3.2-5.0); Alkaline Phosphatase 72 U/L (45-117); Anion Gap 6 (5-15); BUN 30 mg/dL (7-18); BUN/Creat Ratio 19.2 RATIO (10-20); Calcium,Total 8.9 mg/dL (8.5-10.1); Chloride 107 mmol/L (98-107); Cholesterol 145 mg/dL (200); Creatinine, Serum 1.56 mg/dL (0.70-1.30); EST Glomerular Filtration Rate 47 mL/min (>60); Est Glom Filt Rate - Afr Amer 57 mL/min (>60); Globulin 3.8 g/dL (2.2-4.2); Glucose 107 mg/dL (74-106); High Density Lipoprotein 48 mg/dL; Potassium 4.2 mmol/L (3.5-5.1); Protein, Total 7.6 g/dL (6.4-8.2); Sodium Level 141 mmol/L (136-145); Triglycerides 47 mg/dL; Very Low Density Lipoprotein 9 mg/dL (5-40)
[2020-03-31 18:25] LABS: Hemoglobin A1c 7.1 % (3.8-5.6)
== END ==
PROVIDERS: PCP Family Medicine; Referring Provider Family Medicine; Visit Provider Family Medicine
DX: Z00.00 Encounter for general adult medical examination without abnormal findings (principal); E11.65 Type 2 diabetes mellitus with hyperglycemia; R79.89 Other specified abnormal findings of blood chemistry; Z12.5 Encounter for screening for malignant neoplasm of prostate
CPT/HCPCS: 36415; 80053; 80061; 81002; 83036; 84153; 85025; G0103

== ENCOUNTER 2021-03-13 15:59 | Emergency (ER) | payer OTHER, SELFPAY ==
[2021-03-13] VITALS (7 sets, daily range): BP systolic 126–151; BP diastolic 62–88; PULSE 64–75; RESP 11–18; TEMP 36.8–38; O2SAT 94–98; BMI 22.6
--- NOTE | 2021-03-13 16:40 | EDS_ITS ---
HPI History of Present Illness Chief Complaint: General Illness Informant: patient and spouse/S.O. Onset/Context/Timing Onset: Days Context: Gradual Onset Timing: Continuous Current Severity: Mild Maximum Severity: Mild Narrative Narrative: 70-year-old male history of nag-[id number] diabetes currently on no medication. Also history of hypertension on no medications. Patient states he just has not felt well for the last 3 to 4 days began on Saturday. He did know he had a fever he went to urgent care today they said a low-grade temperature of 100.4. He denies any nausea, vomiting or diarrhea. He denies any cough or shortness of breath. He denies any chest pain or dysuria. Neither he nor his have been vaccinated for Covid. They state he has been taking good p.o. fluids and eating. He denies any melena. Prior similar symptoms: No Recent Illness/Hospitalization: No [facility] Medical History (Updated 03/13/21 @ 20:[address] 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 Review of Systems ROS Unobtainable: Denies due to encephalopathy Constitutional Constitutional ED: Denies chills or fever(s) Eyes Eyes: Denies change in vision ENT ENT ED: Denies ear pain or sore throat Cardiovascular Cardiovascular: Denies chest pain or palpitations Respiratory/Chest Respiratory/Chest: Denies cough, dyspnea or sputum Gastrointestinal Gastrointestinal: Denies abdominal pain, diarrhea, melena, nausea or vomiting Genitourinary Genitourinary ED: Denies dysuria or hematuria Musculoskeletal Musculoskeletal: Denies myalgias Integumentary Denies rash Neurologic Neurologic: Denies headache(s) Psychiatric Psychiatric: Denies depression Endocrine Endocrinology: Denies polyuria Allergic/Immunologic Allergic/Immunologic ED: Denies urticaria EXAM Physical Exam Narrative Exam Narrative: Well-appearing 70-year-old male. Temperature is one 0.4. He does not look septic or toxic. He is in no distress. Pulse ox 94% on room air no signs hypoxia. HEENT exam unremarkable. Moist with membranes. Neck nontender no meningismus. Lungs clear to auscultation bilaterally. Heart regular rhythm no murmur. Abdomen soft nontender normal bowel sounds no peritoneal signs. Patient moving all 4 extremities. Calves are nontender without edema or cords. Equal symmetrical paralegal instructor strength. Dorsi plantarflexion intact. Back nontender. Skin without rashes. No petechiae purpura. No cellulitis. Neurologically is awake and alert with no focal motor deficits. Const Vital Signs: 03/13/21 16:00 03/13/21 16:20 03/13/21 16:32 Temperature 100.4 F H 100.4 F H Temperature Source Temporal Temporal Pulse Rate 75 75 Respiratory Rate 18 18 Respiratory Pattern Normal Blood Pressure 145/83 H 145/83 H Blood Pressure Mean 103 103 Pulse Ox 94 94 Oxygen Delivery Method Room Air Room Air 03/13/21 16:44 03/13/21 17:59 03/13/21 18:00 Temperature 100.4 F H 99.6 F H Temperature Source Oral Temporal Pulse Rate 72 71 64 Respiratory Rate 16 12 11 L Respiratory Pattern Blood Pressure 144/88 H 146/75 H 151/83 H Blood Pressure Mean 106 98 105 Pulse Ox 98 97 97 Oxygen Delivery Method Room Air Room Air Room Air 03/13/21 19:34 Temperature 98.2 F Temperature Source Oral Pulse Rate 74 Respiratory Rate 16 Respiratory Pattern Blood Pressure 130/78 H Blood Pressure Mean 95 Pulse Ox 98 Oxygen Delivery Method Positive well nourished and well developed; Negative for obese, cachectic, contractures or unkempt General Appearance ED: well developed and NAD; Negative for unkempt, cachectic, contractures or pallor Nutritional Appearance: Negative for cachectic or obese HEENT Reports moist mucous membranes Negative for trauma or tenderness Eyes PERRL and EOMs intact bilaterally Neck no lymphadenopathy, supple and no JVD General: Negative for tenderness Chest Wall inspection of chest normal and palpation of chest normal Resp normal respiratory effort and clear to auscultation bilaterally Effort and Inspection: Negative for pain with movement Auscultation: Negative for rales, rhonchi or wheezes Cardio regular rate, regular rhythm, S1 normal heart sound, S2 normal heart sound and no murmurs GI normal to inspection, nondistended, normoactive bowel sounds, non-tender and non-distended Palpation: soft Back/Spine no CVA tenderness General Back: Negative for CVA tenderness Cervical Spine: Negative for cervical spine tenderness Extremity normal to inspection General Extremety ED: Negative for edema or tenderness General Extremity: Negative for edema Neuro oriented x3, CN's II-XII intact bilaterally and no sensory deficits noted Sensorium / Orientation: alert; Negative for orientation impaired, lethargic or stuporous Motor Exam: strength 5/5 throughout Psych mental status grossly normal Appearance: Negative for unkempt Mood & Affect: Negative for depressed or tearful Skin no rashes or lesions noted, no wounds and No skin turgor normal General Skin Exam: Negative for elasticity normal, jaundice or pallor MDM MDM MDM Narrative Medical decision making narrative: 70 yo male low-grade fever consider Covid versus other infectious etiologies. I will go through a septic work-up. Be treated with a liter of fluid and Tylenol. Repeat exam patient doing well at 8:15 PM. He feels comfortable being discharged home. I we will refer him to the hospital for evaluation for possible monoclonal antibody. He knows to return if worse. He will be written off work for this week. Lab Data Attestation: I reviewed the patient's lab results. Lab results narrative: CBC shows a white count of 4. Hemoglobin of 12.6. PT PTT INR unremarkable. Electrolytes gap of 5 BUN and creatinine are 35 and 1.7. Friends none. Lactic UA is negative. Chest x-ray negative. Normal was 0.7. Covid positive. His mild anemia and renal function are around his baseline. Labs: Laboratory Results - last 24 hr 03/13/21 03/13/21 03/13/21 16:40 16:40 17:15 WBC 4.7 RBC 4.42 L Hgb 12.6 L Hct 39.0 L MCV 88.2 MCH 28.5 MCHC 32.3 RDW Std Deviation 37.5 RDW Coeff of Raza 11.6 Plt Count 124 L MPV 10.3 Immature Gran % (Auto) 0.200 Neut % (Auto) 69.9 Lymph % (Auto) 17.1 L [place] % (Auto) 12.6 H Eos % (Auto) 0.0 Baso % (Auto) 0.2 Absolute Neuts (auto) 3.3 Absolute Lymphs (auto) 0.80 L Nucleated RBC % 0 PT 13.2 INR 1.1 APTT 35.0 Sodium 138 Potassium 4.2 Chloride 103 Carbon Dioxide 30.0 Anion Gap 5 BUN 35 H Creatinine 1.70 H Estim Creat Clear Calc 35.80 Est GFR (MDRD) Af Amer 51 L Est GFR (MDRD) Non-Af 42 L BUN/Creatinine Ratio 20.6 H Glucose 115 H Lactic Acid Calcium 8.4 L Total Bilirubin 0.30 AST 25 ALT 21 Alkaline Phosphatase 75 Total Protein 7.3 Albumin 3.4 Globulin 3.9 Albumin/Globulin Ratio 0.9 Urine Color Urine Clarity Urine pH Ur Specific [place] Urine Protein Urine Glucose (UA) Urine Ketones Urine Occult Blood Urine Nitrite Urine Bilirubin Urine Urobilinogen Ur Leukocyte Esterase Urine RBC Urine WBC Ur Squamous Epith Cells Urine Bacteria Urine Mucus 03/13/21 03/13/21 17:15 18:35 WBC RBC Hgb Hct MCV MCH MCHC RDW Std Deviation RDW Coeff of [place]aza Plt Count MPV Immature Gran % (Auto) Neut % (Auto) Lymph % (Auto) [place] % (Auto) Eos % (Auto) Baso % (Auto) Absolute Neuts (auto) Absolute Lymphs (auto) Nucleated RBC % PT INR APTT Sodium Potassium Chloride Carbon Dioxide Anion Gap BUN Creatinine Estim Creat Clear Calc Est GFR (MDRD) Af Amer Est GFR (MDRD) Non-Af BUN/Creatinine Ratio Glucose Lactic Acid 0.7 Calcium Total Bilirubin AST ALT Alkaline Phosphatase Total Protein Albumin Globulin Albumin/Globulin Ratio Urine Color Yellow Urine Clarity Sl. Cloudy Urine pH 5.0 Ur Specific [place] 1.015 Urine Protein 30 H Urine Glucose (UA) Normal Urine Ketones Negative Urine Occult Blood 10 H Urine Nitrite Negative Urine Bilirubin Negative Urine Urobilinogen Normal Ur Leukocyte Esterase Negative Urine RBC 0-5 SEEN Urine WBC 0 SEEN Ur Squamous Epith Cells 0-5 SEEN Urine Bacteria RARE Urine Mucus RARE Radiography Chest X-Ray - ED: 1 View, Read by ED Physician, Normal, Heart, Lungs, Mediastinum, Bony Structures and No Acute Disease Diagnostic Testing: Radiology Impression Chest X-Ray 03/13/21 16:49 IMPRESSION: No acute radiographic abnormalities. Electronically Signed: Adebayo Parra MD at 17:56 EDT Tel , Service support , Discharge Plan Triage Chief Complaint: General Illness ED Provider: Richie Figueroa Dx/Rx/DC Orders Clinical Impression: COVID-19 Instructions: Coronavirus Disease 2019 (COVID-19): Overview Prescriptions: No Action Macular Degenaration Vitamins BID RF: 0 Primary Care Provider: Gasper Kenny Referrals: Gasper Kenny MD [Primary Care Provider] - 3-5 Days if not improving Activity Restrictions/Additional Instructions: Plenty of fluids and rest. Tylenol for fever. Follow-up with your doctor to ensure you are improving. Hospital will contact you to discuss the possibility of monoclonal antibody therapy Return emergency department if feeling worse specifically if you are short of breath. Disposition Disposition: Home, Self Care
--- NOTE | 2021-03-13 16:49 | EKG12_ITS ---
Test Reason : GEN ILLNESS Blood Pressure : / mmHG Vent. Rate : 070 BPM Atrial Rate : 070 BPM P-R Int : 160 ms QRS Dur : 082 ms QT Int : 374 ms P-R-T Axes : 067 018 055 degrees QTc Int : 403 ms Normal sinus rhythm Normal ECG Confirmed by DEMETRIUS DUBON, FAUSTO ([id number]), non linear editor DANIEL OLIVAS ([id number]) on 03/15/2021 9:15:57 AM Referred By: JOANNA Confirmed By:FAUSTO ROMO MD
--- NOTE | 2021-03-13 16:49 | RAD_ITS ---
INDICATION: fever EXAMINATION/TECHNIQUE: X-RAY - XR Chest 1 View COMPARISON: 12/19/2017. FINDINGS: The lungs are clear. The cardiomediastinal silhouette is unremarkable. No pleural effusion or pneumothorax. Degenerative changes of the thoracic spine. RAD/Chest 1 View (Portable) IMPRESSION: No acute radiographic abnormalities. Electronically Signed: Adebayo Parra MD at 17:56 EDT Tel , Service support ,
[2021-03-13 17:03] LABS: Absolute Neutrophil Count 3.3 X10^3/uL (2.0-7.7); Basophil# 0.01 X10^3/uL; Basophil% 0.2 % (0-1); Hemoglobin 12.6 g/dL (13.0-16.5); Lymphocyte % 17.1 % (19-41); Mean Corp Hgb Conc 32.3 g/dL (32-36); Mean Corpuscular Hgb 28.5 pg (27.0-32.0); Mean Corpuscular Volume 88.2 fL (80-94); Mean Platelet Vol. 10.3 fl (6.2-12.0); Monocyte# 0.59 X10^3/uL; Monocyte% 12.6 % (0-10); NRBC Flagged by Analyzer 0 % (0-5); Neutrophil # 3.27 X10^3/uL (2.7-7.7); Neutrophil % 69.9 % (47-70); Platelet Count 124 K/mm3 (150-450); RBC Distribution Width CV 11.6 % (11.6-14.6); RBC Distribution Width SD 37.5 fl (35.1-43.9); Red Blood Count 4.42 M/mm3 (4.6-6.2); White Blood Count 4.7 K/mm3 (4.4-11.0)
[2021-03-13 17:19] LABS: ALB/GLOB Ratio 0.9 RATIO (0.9-2.4); AST(SGOT) 25 U/L (15-37); Alanine Aminotransfer ALT/SGPT 21 U/L (16-61); Albumin, Serum 3.4 g/dL (3.2-5.0); Alkaline Phosphatase 75 U/L (45-117); Anion Gap 5 (5-15); BUN 35 mg/dL (7-18); BUN/Creat Ratio 20.6 RATIO (10-20); Calcium,Total 8.4 mg/dL (8.5-10.1); Chloride 103 mmol/L (98-107); EST Glomerular Filtration Rate 42 mL/min (>60); Est Glom Filt Rate - Afr Amer 51 mL/min (>60); Globulin 3.9 g/dL (2.2-4.2); Glucose 115 mg/dL (74-106); Potassium 4.2 mmol/L (3.5-5.1); Protein, Total 7.3 g/dL (6.4-8.2); Sodium Level 138 mmol/L (136-145)
[2021-03-13 17:37] LABS: International Normalized Ratio 1.1; Prothrombin Time (Protime)PT. 13.2 SECONDS (11.7-14.9)
[2021-03-13] MEDS: Acetaminophen 500 MG Tablet 1000 MG PO (17:56)
[2021-03-13] MEDS: 0.9% Normal Saline 1,000 ML 999 ML IV (17:56)
[2021-03-13 17:57] LABS: Lactic Acid 0.7 mmol/L (0.4-1.9)
[2021-03-13 18:44] LABS: White Blood Cells 0 SEEN /hpf (0-5)
[2021-03-13 18:45] LABS: Color, Urine Yellow (Yellow); Glucose, Dipstick Normal (Normal); Ketone-Dipstick Negative (Negative); Leukocyte Esterase-Dipstick Negative /ul (Negative); Nitrite-Dipstick Negative (Negative); Occult Blood-Urine 10 /ul (Negative); Protein-Dipstick 30 mg/dl (Negative); Specific Gravity, Urine 1.015 (1.002-1.030); Urine Bilirubin Dipstick Negative (Negative); Urine Clarity Sl. Cloudy (Clear); Urine Urobilinogen Normal (Normal)
[2021-03-13 18:52] LABS: Bacteria RARE /hpf (None Seen); Mucous, Urine RARE /hpf (<or=2+); Red Blood Cells-Urine 0-5 SEEN /hpf (0-5); Squamous Epithelial Cells - UA 0-5 SEEN /hpf (0-5)
== END 2021-03-13 20:49 | disposition home or self-care (01) ==
PROVIDERS: Emergency Provider Emergency Medicine; PCP Family Medicine
DX: U07.1 COVID-19 (principal); I10 Essential (primary) hypertension; E11.9 Type 2 diabetes mellitus without complications; Z85.828 Personal history of other malignant neoplasm of skin; Z79.84 Long term (current) use of oral hypoglycemic drugs; Z79.899 Other long term (current) drug therapy; Z87.891 Personal history of nicotine dependence
CPT/HCPCS: 71045; 80053; 81001; 83605; 85025; 85610; 85730; 87040; 87086; 87088; 87426; 93005; 96360; 96361; 99283; J7030; A4216

== ENCOUNTER → 2021-04-10 09:26 | Outpatient (CLI) | payer OTHER, SELFPAY ==
[2021-04-10 12:16] LABS: Absolute Lymphocyte Count 0.94 X10^3/uL (0.83-4.51); Absolute Neutrophil Count 4.1 X10^3/uL (2.0-7.7); Basophil# 0.05 X10^3/uL; Basophil% 0.9 % (0-1); Eosinophil# 0.14 X10^3/uL; Eosinophils% 2.4 % (0-5); Hematocrit 35.9 % (40-54); Hemoglobin 11.6 g/dL (13.0-16.5); Lymphocyte # 0.94 X10^3/ul (0.83-4.51); Lymphocyte % 16.2 % (19-41); Mean Corp Hgb Conc 32.3 g/dL (32-36); Mean Corpuscular Hgb 28.3 pg (27.0-32.0); Mean Corpuscular Volume 87.6 fL (80-94); Mean Platelet Vol. 10.3 fl (6.2-12.0); Monocyte# 0.56 X10^3/uL; Monocyte% 9.7 % (0-10); NRBC Flagged by Analyzer 0 % (0-5); Neutrophil # 4.09 X10^3/uL (2.7-7.7); Neutrophil % 70.5 % (47-70); Platelet Count 284 K/mm3 (150-450); RBC Distribution Width CV 11.9 % (11.6-14.6); RBC Distribution Width SD 38.2 fl (35.1-43.9); White Blood Count 5.8 K/mm3 (4.4-11.0)
[2021-04-10 12:44] LABS: ALB/GLOB Ratio 0.8 RATIO (0.9-2.4); AST(SGOT) 14 U/L (15-37); Alanine Aminotransfer ALT/SGPT 20 U/L (16-61); Albumin, Serum 3.3 g/dL (3.2-5.0); Alkaline Phosphatase 79 U/L (45-117); Anion Gap 7 (5-15); BUN 19 mg/dL (7-18); BUN/Creat Ratio 12.8 RATIO (10-20); Calcium,Total 9.2 mg/dL (8.5-10.1); Chloride 106 mmol/L (98-107); Cholesterol 136 mg/dL (200); Creatinine, Serum 1.49 mg/dL (0.70-1.30); EST Glomerular Filtration Rate 49 mL/min (>60); Est Glom Filt Rate - Afr Amer 60 mL/min (>60); Globulin 4.1 g/dL (2.2-4.2); Glucose 143 mg/dL (74-106); High Density Lipoprotein 41 mg/dL; PSA,Total - Annual Screen 2.55 ng/mL (0.00-4.00); Potassium 4.2 mmol/L (3.5-5.1); Protein, Total 7.4 g/dL (6.4-8.2); Sodium Level 141 mmol/L (136-145); Triglycerides 60 mg/dL; Very Low Density Lipoprotein 12 mg/dL (5-40)
[2021-04-10 12:53] LABS: Hemoglobin A1c 7.3 % (3.8-5.6)
== END ==
PROVIDERS: PCP Family Medicine; Referring Provider Family Medicine; Visit Provider Family Medicine
DX: Z00.00 Encounter for general adult medical examination without abnormal findings (principal); R79.89 Other specified abnormal findings of blood chemistry; E11.65 Type 2 diabetes mellitus with hyperglycemia; Z12.5 Encounter for screening for malignant neoplasm of prostate
CPT/HCPCS: 36415; 80053; 80061; 83036; 84153; 85025; G0103

== ENCOUNTER 2021-05-17 16:30 | Outpatient (RCR) | payer OTHER, SELFPAY ==
--- NOTE | 2021-04-19 18:07 | HP.PTEVAL ---
Patient's Visit Information KYLIE DURBIN is a 70 year old M referred to Physical Therapy by Dr. Gasper Kenny MD with a diagnosis of Balance Problem. Date of Evaluation: 04/19/21 Physical Therapist: LEELA Cordero - Visit Plan Frequency: 1x/Week Duration: 3 Weeks Plan: 1X/ week for 3 weeks for vestibular inputs for balance, LE strength, foam work with HEP. May do a Neurocom test if needed. - Subjective Pt reports that he has a balance problem and it is slowly getting worse. He first started to notice it when he would get up off the couch and he would have to take a few steps to the side. Now he will be walking and he will have to take a couple of steps to the side to catch his baalance. He has never fallen yet but has come close. He was in for his yearly DM Dr and he told him about it. His blood sugar range 130-180. He has numbness in his feet. He has been diabetic for 4-5 years now. He can still feel his feet but may not be as sharp as it once was. He has no dizziness. He is sleeping ok. 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 He feels like his legs are pretty strong but if he is walking up the hill in a yard he will start feel a little weakness. He has had a L knee injury that he struggles to get back up from a squat position. - Objective Gait: Walks with normal gait pattern with occ veering. He will walk with head turns and horizontal head turns does cause him to veer at times. FGA: 24. CATSIB: 105. LE MMT: B hip flex 4/5 R hip abd 4/5 and L 4-/5, B hip ext 4/5, B knee flex and ext 4/5. Pt is able to walk on heels and toes...struggles a little walking on his heels. Stairs: able to walk up and down the steps recip with no hand rail but he did trip going up the steps on the last 2 steps but caught himself - Balance/Special Test Scores Functional Gait Assessment Score: 24 % Disability: 20.0000 CATSIB Score (Max score 120 seconds): 105 Lower Extremity Functional Score: 60 - Goals Goal 1:: I HEP Goal Time Frame: 2-4 Weeks Goal 2:: Increase FGA by 5 points Goal Time Frame: 2-4 Weeks Goal 3:: Increase catsib 120/120 Goal Time Frame: 2-4 Weeks Goal 4:: Increase L LE strength by 1/2 muscle grade (at time of the eval: Goal Time Frame: 2-4 Weeks Goal 5:: Be able to walk up and down the steps recip with no hand rails with no tripping Goal Time Frame: 2-4 Weeks - Rehabilitation Potential Rehabilitation Potential: Good - Anticipated Interventions Patient/Client Instruction: Educate patient on: Condition, Plan of Care For the Purpose of:: To improve nutrient delivery to tissue, To improve muscle performance and motor function, To improve ability to perform ADL's, To increase tolerance to activity/condition/position, To improve ability of physical actions for home/community/work/leisure, To improve gait and locomotor functions, To improve balance, To improve safety with gait Therapeutic Exercise to Include: Strength training, Balance training, Postural training, Gait and locomotor training, Neuromotor development, Active ROM For the Purpose of:: To improve nutrient delivery to tissue, To improve muscle performance and motor function, To improve ability to perform ADL's, To increase tolerance to activity/condition/position, To improve performance and independence with ADL's, To improve ability of physical actions for home/community/work/leisure, To improve gait and locomotor functions, To improve balance, To improve safety with gait Functional Training to Include: Gait training For the Purpose of:: To improve gait and locomotor functions, To improve safety with gait Thank you for the opportunity to evaluate your patient. For Medicare and Medicare HMO plans, please review the plan of care and approve it. It will need to be FAXED BACK to us at [phone] for Medicare purposes. For Medicare only, by signing this I certify the plan of care. Please let me know if there are questions or concerns regarding this plan of care. Physician Signature: Date:
--- NOTE | 2021-05-17 18:45 | HP.PTDCSUM ---
It has been my pleasure to treat KYLIE DURBIN referred by Dr. Gasper Kenny MD, with the diagnosis of Balance Problem for a total of 4 visit(s). Discharge Date: 05/17/21 Please see the following information for a summary of their discharge status. Subjective: Pt has not had much trouble with his balance. He is not sure if he has gotten better or that he just has not had an episode. % Improvement: 60 Objective/Function: Stairs: up and down recip with no hand rail. he did catch his toe. FGA: 28. CATSIB 120/120 on alcantara foam Goal 1:: I HEP Goal Progress: Progressing Goal 2:: Increase FGA by 5 points Goal Progress: Goal Met Goal 3:: Increase catsib 120/120 Goal Progress: Goal Met Goal 4:: Increase L LE strength by 1/2 muscle grade (at time of the eval: Goal Progress: Progressing Goal 5:: Be able to walk up and down the steps recip with no hand rails with no tripping Goal Progress: Goal Met Plan: DC PT to HEP Discharge Comments: DC PT to HEP If there are questions or concerns regarding this patient's physical therapy, please feel free to call me at [phone]. Thank you for the referral of this patient. Sincerely, Whit Tierney, MPT Balance/Gait/Functional tests - Balance/Special Test Scores Functional Gait Assessment Score: 28 % Disability: 6.6700 CATSIB Score (Max score 120 seconds): 120 Lower Extremity Functional Score: 74
== END 2021-05-17 19:00 | disposition home or self-care (01) ==
LOC: PT 16:30
PROVIDERS: PCP Family Medicine; Referring Provider Family Medicine; Visit Provider Family Medicine
DX: R27.9 Unspecified lack of coordination (principal)
CPT/HCPCS: 97110; 97161; 97530

== ENCOUNTER → 2021-06-15 16:16 | Outpatient (CLI) | payer OTHER, SELFPAY ==
[2021-06-15 17:30] LABS: Hematocrit 35.7 % (40-54); Hemoglobin 11.5 g/dL (13.0-16.5); Mean Corp Hgb Conc 32.2 g/dL (32-36); Mean Corpuscular Hgb 28.3 pg (27.0-32.0); Mean Corpuscular Volume 87.7 fL (80-94); Mean Platelet Vol. 10.3 fl (6.2-12.0); Platelet Count 253 K/mm3 (150-450); RBC Distribution Width CV 12.1 % (11.6-14.6); RBC Distribution Width SD 39.1 fl (35.1-43.9); Red Blood Count 4.07 M/mm3 (4.6-6.2); White Blood Count 6.6 K/mm3 (4.4-11.0)
[2021-06-15 17:43] LABS: Protein, Urine (Random) 17.5 mg/dL (<11.9); Protein:Creat Ratio 385 mg/g CRE (0-200)
[2021-06-15 17:46] LABS: Vitamin D,25 Hydroxy 28.6 ng/mL
[2021-06-15 17:47] LABS: Albumin, Serum 3.7 g/dL (3.2-5.0); BUN 33 mg/dL (7-18); BUN/Creat Ratio 22.8 RATIO (10-20); Calcium,Total 9.5 mg/dL (8.5-10.1); Chloride 107 mmol/L (98-107); Creatinine, Serum 1.45 mg/dL (0.70-1.30); EST Glomerular Filtration Rate 51 mL/min (>60); Est Glom Filt Rate - Afr Amer 62 mL/min (>60); Glucose 101 mg/dL (74-106); Phosphorus 3.3 mg/dL (2.5-4.9); Potassium 4.3 mmol/L (3.5-5.1); Sodium Level 140 mmol/L (136-145)
[2021-06-16 08:07] LABS: PTHIN 41.8 pg/mL (18.4-80.1)
== END ==
PROVIDERS: PCP Family Medicine; Referring Provider Internal Medicine Nephrology; Visit Provider Internal Medicine Nephrology
DX: N18.31 Chronic kidney disease, stage 3a (principal)
CPT/HCPCS: 36415; 80069; 82306; 82570; 83970; 84156; 85027

== ENCOUNTER 2021-10-03 15:54 | Outpatient (CLI) | payer OTHER, SELFPAY ==
[2021-10-03 18:04] LABS: Anion Gap 3 (5-15); BUN 33 mg/dL (7-18); BUN/Creat Ratio 20.5 RATIO (10-20); Calcium,Total 9.4 mg/dL (8.5-10.1); Chloride 107 mmol/L (98-107); Cholesterol 152 mg/dL (200); Creatinine, Serum 1.61 mg/dL (0.70-1.30); EST Glomerular Filtration Rate 45 mL/min (>60); Est Glom Filt Rate - Afr Amer 55 mL/min (>60); Glucose 117 mg/dL (74-106); High Density Lipoprotein 49 mg/dL; Potassium 4.8 mmol/L (3.5-5.1); Sodium Level 141 mmol/L (136-145); Triglycerides 46 mg/dL; Very Low Density Lipoprotein 9 mg/dL (5-40)
[2021-10-03 18:08] LABS: Hemoglobin A1c 7.3 % (3.8-5.6)
== END 2021-10-03 23:59 | disposition home or self-care (01) ==
LOC: MTLAB 15:55
PROVIDERS: PCP Family Medicine; Referring Provider Family Medicine; Visit Provider Family Medicine
DX: E11.65 Type 2 diabetes mellitus with hyperglycemia (principal)
CPT/HCPCS: 36415; 80048; 80061; 83036

== ENCOUNTER 2022-05-11 08:15 | Day surgery (SDC) | payer OTHER, SELFPAY ==
--- NOTE | 2022-05-10 17:20 | HP.PCM_ITS ---
History and Physical Date of Admission: 05/11/22 HISTORY OF PRESENT ILLNESS 71 year old man presents for evaluation for TBSE.? He had concerns about a lesion on the dorsum left hand in 1st web space that has increased in size over the last several months and has developed irregular borders.? He denies trauma.? He denies fever.? He denies recent infection.? His lesions on his left ear at middle helical rim and right lateral forehead at lateral eyebrow remain healed after using Aldara.? At his last visit he had two soft tissue masses left proximal forearm by the elbow that are causing him more discomfort when they are bumped. In the recent past, he hit the dorsum left thumb at proximal aspect of the skin graft with a hammer very hard according to the patient.? He developed a blister that is slowly healing at this point.? He presents at this time for further evaluation and treatment. 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 negative for skin cancer. SOCIAL HISTORY Smoking Status:? Former smoker REVIEW OF SYSTEMS General - Denies fever, fatigue, and weight loss. Eyes - Denies cataracts and glaucoma. ENT - Denies nasal congestion and sore throat. Endocrine - Has excessive thirst and urination.? Has diabetes mellitus. Skin - HAS PERSONAL HISTORY OF skin cancer. He has enlarging lesion dorsum left hand in 1st web space.? He had lesions on HIS LEFT EAR AT MIDDLE HELICAL RIM AND RIGHT LATERAL FOREHEAD AT LATERAL EYEBROW that were recently treated with Aldara that remain healed.? He has enlarging soft tissue masses left proximal forearm by the elbow that are painful.? Musculoskeletal - Has joint pain, joint stiffness, weakness of muscles and joints and back pain.? Denies arthritis. Neuro - Denies headaches.? Has lightheadedness. Cardiovascular - Denies chest pain, fatigue, and shortness of breath with exertion. Has lightheadedness. Psych - Denies anxiety and depression. Respiratory - Denies chronic cough and shortness of breath. Patient is a former smoker. Gastrointestinal - Denies nausea, vomiting, diarrhea, and constipation. Hematologic - Denies abnormal bruising and bleeding. Genitourinary - Denies hematuria.? Has urinary frequency. PHYSICAL EXAMINATION General-well developed, well nourished, in no acute distress. HEENT-pupils equal round and reactive to light.? Extraocular muscles intact.? Throat is clear.? On right supra-medial cheek by lower eyelid is a lesion that is slightly raised in configuration.? It measures 4 mm. ? Has regular borders.? No ulceration.? Lesion is nontender.? Clinically looks like a benign keratosis.? Will observe at this time. On the left supra-medial cheek by melolabial fold is a lesion that is slightly raised in configuration.? It measures 5 mm.? Has regular borders.? No ulceration.? Lesion is nontender.? Clinically looks like a benign keratosis.? Will observe at this time. On the right lateral forehead at lateral eyebrow was an erythematous lesion that was treated with Aldara.? Today it is smooth and appears healed without evidence of recurrence at this time.? On the left ear at middle helical rim was an erythematous lesion that was treated with Aldara.? Today it is smooth and appears healed without evidence of recurrence at this time.? Neck-supple and nontender.? No masses.? No cervical adenopathy.? No suspicious lesions noted. Chest wall-no suspicious lesions noted. Lungs-clear to auscultation. Heart-regular rate and rhythm. Abdomen-soft and nondistended.? No hernias.? No suspicious lesions noted. Extremities-full range of motion.? Patient is right-hand dominant.? No axillary adenopathy.? Radial pulses are palpable.? On the left proximal forearm by the elbow are two soft tissue masses in the midline.? The proximal one measures 2 cm.? The distal one measures 1 cm.? They are mobile.? Slightly firm to palpation.? No ulceration.? Some discomfort when bumped. On the dorsum left hand in 1st web space is a lesion that measures 0.9 cm.? Tannish in color with a nodularity in the center.? Has irregular borders.? Slightly raised in configuration.? No ulceration.? Lesion is nontender.? On dorsum left thumb at proximal aspect of the skin graft shows an area of healing after he smashed the area with a hammer.? Some initial blistering developed which has since been debrided. Neurologic-cranial nerves II through XII grossly intact. ASSESSMENT 1.? 0.9 cm lesion dorsum left hand in 1st web space. 2.? LESION LEFT EAR AT MIDDLE HELICAL RIM, healed after using Aldara. 3.? LESION RIGHT LATERAL FOREHEAD AT LATERAL EYEBROW, healed after using Aldara.? 4.? 4 mm benign keratosis right supra-medial cheek by lower eyelid, stable. 5.? 5 mm benign keratosis left supra-medial cheek by melolabial fold stable. 6.? 2 cm painful soft tissue mass proximal left forearm by the elbow. 7.? 1 cm painful soft tissue mass proximal left forearm by the elbow, distal. 8.? Personal history of skin cancer. 9.? History of actinic keratoses. 10.? Former smoker. PLAN The lesions that were treated with Aldara are smooth and remain healed at this time without evidence of recurrence.? Will continue to observe at this time.? If any changes occur, can reapply Aldara or go to the operating room for excision.? If excised, will send to Pathology for analysis to rule out carcinoma. He has two soft tissue masses left proximal forearm by the elbow.? They are becoming more painful.? Recommend excision at this time.? Will send the masses to Pathology for analysis to rule out carcinoma. . ? IF CARCINOMA IS PRESENT, THEN FURTHER EXCISION WILL BE DONE WITH SKIN FLAP AND/OR SKIN GRAFT RECONSTRUCTION. He has a new, enlarging lesion dorsum left hand in 1st web space that appears actinic at this time but has some characteristics of a possible carcinoma. Recommend excision of this lesion and send it to Pathology for analysis to rule out carcinoma.? If carcinoma is present, then further excision will be done with skin flap or skin graft reconstruction can be done.? Will excise this lesion and the two soft tissue masses on his proximal forearm on an outpatient basis under local anesthesia and IV sedation on an outpatient basis. Patient was informed of the risks and complications of the procedure including alternatives to surgery.? These were discussed with the patient personally.? Patient voices understanding and wishes to proceed. Some of the risks and complications were included in a form from the [employer] [employer]. The benign keratoses right supra-medial cheek by lower eyelid and left supra- medial cheek by melolabial fold are stable and will be observed at this time. Assessment & Plan Assessment/Plan (1) Neoplasm of skin of hand: (2) Subcutaneous mass of left forearm: (3) Personal history of skin cancer: (4) History of actinic keratosis: (5) Former smoker:
[2022-05-11] VITALS (9 sets, daily range): BP systolic 123–187; BP diastolic 67–83; PULSE 61–66; RESP 16; TEMP 36.4–36.9; O2SAT 95–97; BMI 23.1
--- NOTE | 2022-05-11 | LES_PTH ---
PATIENT: KYLIE DURBIN LOC: [facility] [place] U#:[id number] AGE/SX: 71/M ROOM: RE05/11/[address]: Dr. Andrea Kumar MD : 1950 BED: DIS: 05/11/2022 SPEC #: [id number] RECD: 05/11/22 10:10 STATUS: GOLD HUONG #: [id number] STEFFANIE: 05/11/22 00:[address]: Andrea Kumar DEPT: SURGICAL PATHOLOGY RECD BY: Lizzette Bernal ENTERED: 05/11/22 11:25 SP TYPE: Lesion OTHR DR: Dr. Gasper Kenny MD Tissues: A - Skin of hand and finger, NOS B - Skin of arm C - Skin of arm D - Skin of hand and finger, NOS Procedures: Frozen Section (charge) Surgery Specimen Level IV HEADER OPERATION: Excision lesion dorsal aspect thumb at first web space PRE-OP DIAGNOSIS: 0.9 cm lesion dorsum left hand in first web space; 2 cm painful soft tissue mass proximal left forearm by elbow; 1 cm painful soft tissue mass proximal left forearm by elbow, distal TISSUE SUBMITTED: A - 0.9 cm lesion dorsum left hand in first web space, suture at 12 o?clock, FS, B - 2 cm painful soft tissue mass proximal left forearm by elbow, C - 1 cm painful soft tissue mass proximal left forearm by elbow, distal, D - Atypical lesion dorsum left hand in first web space, suture at 12 o?clock FROZEN SECTION DIAGNOSIS A. Skin lesion of left hand, biopsy: Focal epithelial atypia with associated chronic inflammation. Solar elastosis. AM:gurpreet 05/11/2022 MICROSCOPIC DIAGNOSIS A. Skin lesion of left hand, biopsy: Actinic keratosis and focal verrucoid change. Solar elastosis and mild chronic inflammation. B. Left forearm lesion, biopsy: Benign fibrous walled cyst with associated minimal chronic inflammation. No evidence of malignancy. C. Left forearm soft tissue mass, biopsy: Fragments of benign fibrofatty tissue. D. Dorsum of left hand, excisional biopsy: Actinic keratosis and solar elastosis. AM:gurpreet 05/14/2022 MICROSCOPIC DESCRIPTION Slides are reviewed. GROSS DESCRIPTION A - Received fresh for frozen section consultation/diagnosis labeled with the patient's name is a specimen designated lesion of left hand dorsum. The specimen consists of an irregular fragment of skin measuring 1 x 0.6 x 0.2 cm. The specimen is inked, bisected and totally submitted in one block for frozen section consultation. / AM: 05/11/2022 B - Received in fixative is one container labeled with the patient's name and designated left forearm. The specimen consists of an irregular fragment of quezada-pink tissue measuring 1.2 x 1 x 0.2 cm. The specimen is inked, serially sectioned and totally submitted in one cassette. / AM: 05/11/2022 C - Received in fixative is one container labeled with the patient's name and designated left forearm. The specimen consists of two irregular fragments of pink-quezada soft tissue that in aggregate measure 1.4 x 0.6 x 0.2 cm. The specimen is totally submitted in one cassette. / AM: 05/11/2022 D - Received in fixative is one container labeled with the patient's name and designated left hand first web space. The specimen consists of a discoid fragment of quezada skin containing a central area of defect. The skin fragment measures 2 x 1.5 x 0.1 cm. A suture is present at one edge. This edge is inked in black ink. The opposite edge is inked in yellow ink. The remainder of specimen is inked in blue ink. The specimen is serially sectioned and totally submitted in one cassette. / AM: 05/11/2022 TC:5 CPT: 15448 x4, 95201
[2022-05-11] MEDS: Lactated Ringers 1,000 ML 15 ML IV (08:54)
[2022-05-11] MEDS: Cefazolin 2 GM in 0.9% Normal Saline 100 ML IV (09:40)
[2022-05-11] MEDS: Lidocaine 2% /Epi 1:100 (20ml) 20 ML VIAL INFILT (10:03)
[2022-05-11] MEDS: Mupirocin Ointment 22gm Tube 1 APPLIC (10:15)
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
--- NOTE | 2022-05-11 11:07 | DCINST_ITS ---
Discharge Instructions Diet Discharge Diet: Carb Control Diet Activity Discharge Activity: May Shower (in one day. wear plastic bag over left hand and forearm when showering.) Return to work on:: 05/18/22 (tentative. after being seen in the office.) May shower in (days): 1 (wear plastic bag over left hand and forearm when showering.) May resume sexual activity in: No Restrictions Weight Bearing Status: Weight bearing as tolerated Lifting Restrictions: 20 lbs. lifting restriction with left hand. Keep extremity elevated above heart level: Left Arm Dressing / Incision Call your doctor if your incision/area has: Continuous Slow Oozing, Sudden Increased Bleeding, Increased Pain/ Swelling, Increased Redness, Foul Smelling Discharge and Swelling at the incision site Call your doctor if you observe: Fever of 101 or Higher, Coldness, Increased Pain, Shortness of breath, Chest pain, Calf discomfort and Uncontrolled pain Change Dressing in: do not change dressing Remove Dressing in: do not remove dressing (will remove operative dressing in the office.) Cleanse incision/area with: Keep Dressing Clean & Dry (wear plastic bag over left hand and forearm when showering.) Follow Up Care Please Follow Up With: Andrea Kumar MD When: one week. call [phone] for appt. Test Results: Test results from this visit will be discussed in further detail at your follow- up appointment, if applicable. Discharge Plan Admission Primary Reason for Your Visit: excision lesion dorsum left hand Attending Provider: Andrea Kumar Primary Care Provider: Gasper Kenny Discharge Orders/Prescriptions Prescriptions: New cefadroxil 500 mg capsule 500 mg PO BID Qty: 14 0RF L.acidoph,saliva-B.bif-S.therm [Acidophilus Probiotic Blend] 175 mg capsule 1 cap PO DAILY Qty: 10 0RF oxycodone-acetaminophen [Percocet] 5-325 mg tablet 1 tab PO Q6H PRN (Reason: pain (scale score 7-10)) 5 Days Qty: 20 0RF Rx Instructions: 20 tabs (twenty) Continued Vabysmo 6 mg/0.05 mL solution 6 mg intravitreal Q4W Macular Degenaration Vitamins 1 tab PO/SL BID ibuprofen 100 mg Tablet 200 mg PO Q6H PRN (Reason: Pain) Referrals / Follow Up: Andrea Kumar MD [Med Staff - Active Staff] - (followup one week.) Gasper Kenny MD [Primary Care Provider] - Disposition Disposition (needs filled in before D/C Order can be placed): Home, Self Care
[2022-05-11 11:50] LABS: Bedside Glucose 156 mg/dL (74-106)
== END 2022-05-11 12:39 | disposition home or self-care (01) ==
LOC: SDC 08:17 → AC 08:21
PROVIDERS: PCP Family Medicine; Referring Provider Surgery; Visit Provider Surgery
PROC: (CPT 14040; principal; 2022-05-11 09:40)
DX: M60.232 Foreign body granuloma of soft tissue, not elsewhere classified, left forearm (principal); E11.9 Type 2 diabetes mellitus without complications; L57.0 Actinic keratosis; Z18.81 Retained glass fragments; M79.632 Pain in left forearm; S51.832S Puncture wound without foreign body of left forearm, sequela; V89.2XXS Person injured in unspecified motor-vehicle accident, traffic, sequela; Z79.899 Other long term (current) drug therapy; Z87.891 Personal history of nicotine dependence; Z85.828 Personal history of other malignant neoplasm of skin
CPT/HCPCS: 14040; 20520; 25248; 00400; 82962; 88305; 88331; J7120; J2405

== ENCOUNTER → 2022-05-11 | Outpatient (CLI) | payer OTHER, SELFPAY ==
[2022-05-11 09:58] LABS: Hematocrit 38.3 % (40-54); Hemoglobin 12.9 g/dL (13.0-16.5); Mean Corp Hgb Conc 33.7 g/dL (32-36); Mean Corpuscular Volume 89.1 fL (80-94); Mean Platelet Vol. 10.6 fl (6.2-12.0); Platelet Count 208 K/mm3 (150-450); RBC Distribution Width SD 39.5 fl (35.1-43.9); White Blood Count 6.4 K/mm3 (4.4-11.0)
[2022-05-11 10:10] LABS: Vitamin D,25 Hydroxy 24.7 ng/mL
[2022-05-11 10:19] LABS: Albumin, Serum 3.6 g/dL (3.2-5.0); BUN 38 mg/dL (7-18); BUN/Creat Ratio 24.1 RATIO (10-20); Calcium,Total 8.9 mg/dL (8.5-10.1); Chloride 105 mmol/L (98-107); Creatinine, Serum 1.58 mg/dL (0.70-1.30); EST Glomerular Filtration Rate 46 mL/min (>60); Est Glom Filt Rate - Afr Amer 56 mL/min (>60); Glucose 146 mg/dL (74-106); Phosphorus 3.1 mg/dL (2.5-4.9); Potassium 4.3 mmol/L (3.5-5.1); Sodium Level 139 mmol/L (136-145)
[2022-05-11 10:20] LABS: Protein, Urine (Random) 23.2 mg/dL (<11.9); Protein:Creat Ratio 273 mg/g CRE (0-200)
[2022-05-11 10:29] LABS: PTHIN 56.1 pg/mL (18.4-80.1)
== END | disposition home or self-care (01) ==
LOC: MTLAB 07:42
PROVIDERS: PCP Family Medicine; Referring Provider Internal Medicine Nephrology; Visit Provider Internal Medicine Nephrology
DX: N18.31 Chronic kidney disease, stage 3a (principal)
CPT/HCPCS: 36415; 80069; 82306; 82570; 83970; 84156; 85027

== ENCOUNTER → 2023-05-10 | Outpatient (CLI) | payer OTHER, SELFPAY ==
[2023-05-10 16:36] LABS: Hematocrit 38.5 % (40-54); Hemoglobin 12.6 g/dL (13.0-16.5); Mean Corp Hgb Conc 32.7 g/dL (32-36); Mean Corpuscular Volume 88.7 fL (80-94); Mean Platelet Vol. 9.9 fl (6.2-12.0); Platelet Count 223 K/mm3 (150-450); RBC Distribution Width CV 12.3 % (11.6-14.6); RBC Distribution Width SD 40.7 fl (35.1-43.9); Red Blood Count 4.34 M/mm3 (4.6-6.2); White Blood Count 7.1 K/mm3 (4.4-11.0)
[2023-05-10 16:46] LABS: Protein, Urine (Random) 26.6 mg/dL (<11.9); Protein:Creat Ratio 272 mg/g CRE (0-200)
[2023-05-10 17:35] LABS: Albumin, Serum 3.8 g/dL (3.2-5.0); BUN 34 mg/dL (7-18); BUN/Creat Ratio 21.5 RATIO (10-20); Chloride 109 mmol/L (98-107); Creatinine, Serum 1.58 mg/dL (0.70-1.30); EST Glomerular Filtration Rate 46 mL/min (>60); Est Glom Filt Rate - Afr Amer 56 mL/min (>60); Glucose 88 mg/dL (74-106); Phosphorus 2.9 mg/dL (2.5-4.9); Potassium 4.2 mmol/L (3.5-5.1); Sodium Level 141 mmol/L (136-145)
[2023-05-10 17:40] LABS: Vitamin D,25 Hydroxy 28.4 ng/mL
[2023-05-13 08:40] LABS: PTHIN 79.7 pg/mL (18.4-80.1)
== END | disposition home or self-care (01) ==
LOC: LAB 16:06
PROVIDERS: PCP Family Medicine; Visit Provider Internal Medicine Nephrology
DX: N18.31 Chronic kidney disease, stage 3a (principal)
CPT/HCPCS: 36415; 80069; 82306; 82570; 83970; 84156; 85027

== ENCOUNTER → 2023-09-25 | Day surgery (SDC) | payer OTHER, SELFPAY | END | disposition home or self-care (01) | LOC: PAT 15:20 | PROVIDERS: PCP Family Medicine; Visit Provider Surgery | DX: Z01.818 Encounter for other preprocedural examination (principal); Z53.9 Procedure and treatment not carried out, unspecified reason ==

== ENCOUNTER 2023-11-29 05:53 | Day surgery (SDC) | payer OTHER, SELFPAY ==
[2023-11-26 17:55] LABS: Hemoglobin A1c 7.3 % (3.8-5.6)
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
[2023-11-29] VITALS (7 sets, daily range): BP systolic 112–162; BP diastolic 58–71; PULSE 57–66; RESP 16; TEMP 36.1–36.3; O2SAT 94–100; BMI 23.6
[2023-11-29] MEDS: Lactated Ringers 1,000 ML 15 ML IV (06:30)
--- NOTE | 2023-11-29 07:30 | LES_PTH ---
PATIENT: KYLIE DURBIN [place] [facility] [place][id number] AGE/SX: 72/M ROOM: RE11/29/[address]: Dr. Andrea Kumar MD : 1950 BED: DIS: 11/29/2023 SPEC #: [id number] RECD: 11/29/23 10:43 STATUS: GOLD RASHEEDMik #: [id number] STEFFANIE: 11/29/23 07:[address]: Andrea Kumar DEPT: SURGICAL PATHOLOGY RECD BY: Ximena Dubois ENTERED: 11/29/23 12:07 SP TYPE: Lesion OTHR DR: Dr. Gasper Kenny MD Tissues: A - Skin of thumb, NOS B - Skin of thumb, NOS Procedures: Surgery Specimen Level IV HEADER OPERATION: Excision ulcerated lesion dorsum left thumb proximal PRE-OP DIAGNOSIS: Nonhealing skin ulcer with fat layer exposed, squamous cell carcinoma of skin of left thumb TISSUE SUBMITTED: A- Left thumb, 1.2cm ulcerated lesion squamous cell carcinoma- suture ramos 12o'clock, B- Left thumb deeper margin ulcerated lesion squamous cell carcinoma MICROSCOPIC DIAGNOSIS A. Skin lesion of left thumb, biopsy: Actinic keratosis with focal moderate atypia. Hyperkeratosis, parakeratosis and acanthosis. Extensive solar elastosis. B. Left thumb, deeper margin, biopsy: Elastosis and fibrosis. No evidence of malignancy. / 12/03/2023 MICROSCOPIC DESCRIPTION Slides are reviewed. GROSS DESCRIPTION A. Received in fixative is one container labeled with the patient's name and designated Left thumb ulcerated lesion. The specimen consists of an oriented fragment of light quezada skin measuring 2.5 x 2.2 x 0.2cm. The specimen is differentially inked as follows: 12o'clock- black, 3o'clock- green, 6o'clock- blue, 9o'clock-red. The cutaneous surface displays a shallow ulcer measuring 1.2 x <0.1cm. The specimen is serially sectioned and totally submitted in two cassettes. B. Received in fixative is one container labeled with the patient's name and designated Deeper margin ulcerated left thumb lesion. The specimen consists of a single irregular fragment of quezada tissue measuring 0.6 x 0.3 x 0.2cm. The specimen is totally submitted in one cassette. / 11/29/2023 TC:? CPT:60871l8 ADDENDUM ADDENDUM 12/04/2023 12:22 ADDENDUM 12/04/2023 12:22 ADDENDUM 12/04/2023 12:22 ADDENDUM 12/04/2023 12:22 ADDENDUM 12/04/2023 12:22 A. Margins of excision are free of atypia.
[2023-11-29] MEDS: Cefazolin 2 GM in 0.9% Normal Saline (100mL Bag) 100 ML IV (07:55)
[2023-11-29] MEDS: Lidocaine 1% /Epi 1:100 (20ml) 20 ML Vial (08:22)
[2023-11-29 08:28] LABS: Bedside Glucose 136 mg/dL (74-106)
[2023-11-29] MEDS: Mupirocin Ointment 22gm Tube 1 APPLIC (08:55)
--- NOTE | 2023-11-29 09:21 | OP.PCM_ITS ---
Problems Associated Problem List Diagnoses (1) Nonhealing skin ulcer with fat layer exposed: (2) Personal history of skin cancer: (3) History of actinic keratosis: (4) Former smoker: (5) Hemoglobin A1c between 7.0% and 9.0%: Report of Operation Date of Procedure: 11/29/23 Pre-Operative Diagnosis: 1. 1.2 cm nonhealing ulcer in previous skin graft from squamous cell carcinoma dorsum left thumb just proximal to MP joint. 2. Personal history of skin cancer. 3. History of actinic keratoses. 4. Diabetes mellitus. 5. HgbA1c 7.3 on 11/26/23. 6. Former smoker. Post-Operative Diagnosis: Same. Surgery/Procedure Performed:: Excision 1.2 cm nonhealing ulcer in previous skin graft from squamous cell carcinoma dorsum left thumb just proximal to MP joint with FTSG reconstruction from left flank (5.76 cm2). Description of Surgical Findings:: 72 year old man presents for evaluation for TBSE.? He recently used Aldara on lesions on his left cheek and right cheek. He forgot to use it on the lesion right forehead by medial eyebrow. He tolerated it well. The lesion left cheek responded well after using Aldara. The lesion right cheek showed no response after using Aldara. He denies fever. He denies trauma. He denies recent infection. He denies drainage. The ulceration on the proximal aspect of a healed skin graft on the dorsum left thumb just proximal to MP joint in the past after excision of a squamous cell carcinoma is still present. About 6 months ago he hit the skin graft with a hammer and he developed a blister in this area. Today it is still not healed. The lesion left postauricular area is unchanged as he has no complaints regarding this lesion. He presents at this time for further evaluation and treatment. The size of the skin graft dorsum left thumb just proximal to MP joint - 2.4 x 2.4 cm. Surgeon: Andrea Kumar MD waste transportation technician: Denise Osuna RNFA Type of Anesthesia: General Anesthesiologist: Antoine Mace MD and Agusto Gonsalez CRNA Specimen's removed: 1. Nonhealing ulcer in previous skin graft from squamous cell carcinoma dorsum left thumb just proximal to MP joint to Pathology. 2. Nonhealing ulcer in previous skin graft from squamous cell carcinoma dorsum left thumb just proximal to MP joint, deep margin, to Pathology. Drains: None. Estimated Blood Loss (mL): 5. Description of Procedure: Patient was taken to OR in supine position and was placed under general anesthesia. The left hand and left flank areas were prepped and draped in the usual fashion. SCD's were placed for DVT prophylaxis. Perioperative antibiotics were given intravenously. Using xylocaine with epinephrine, the nonhealing ulcer left thumb and the left flank donor incision were infiltrated. After waiting 5 minutes for the anesthetic to take effect, I excised the nonhealing ulcer in previous skin graft from squamous cell carcinoma dorsum left thumb just proximal to MP joint with a 6 mm margin in all directions thus fasmaryan addisong a 2.4 cm excision. A suture was marked at 12 oclock position for pathology orientation. The ulcerated lesion was then sent to Pathology for analysis to rule out carcinoma. It was noted there was some dense fibrous tissue deep to the excision that appeared adherent to the underlying tendon. It was sharply excised and sent to Pathology as deeper margin for analysis to rule out carcinoma. There was soft tissue overlying the tendon after excision of this dense fibrous tissue. The size of the wound to be skin grafted was 2.4 x 2.4 cm or 5.76 cm2. Hemostasis was obtained with electrocautery. A small amount of saline irrigation was done. I made an oblique elliptical incision in the left flank down into the subcutaneous tissue. The subcutaneous tissue was removed from the undersurface of the dermis thus fashioning a full thickness skin graft. The skin graft was placed in saline. The central subcutaneous tissue was excised to aid in wound closure. I closed the donor incision left flank with 3-0 Monocryl interrupted sutures for the deep dermis and subcutaneous tissue. The skin was approximated with 4-0 Prolene simple interrupted sutures. Antibiotic ointment was applied to the suture line followed by 4x4 gauze. The full thickness skin graft was then placed in the wound left thumb and secured to the skin edges with 4-0 Chromic simple interrupted sutures. 4-0 Chromic sutures were also used for central quilting stabilization. Antibiotic ointment was applied to the skin graft followed by Xeroform gauze and cotton balls soaked in saline and secured to the skin edges with 4-0 Nylon tie over stent suture dressing. 2 inch Bell was applied followed by lilia wrap compression dressing. Medipore tape was used to secure the left flank donor incision. Patient tolerated the procedure well and was sent to PACU in satisfactory condition. Patient will be sent home on antibiotics and pain medication. He will keep his left hand elevated during the initial postoperative period. He can place a plastic bag over his left hand when showering. Patient will followup in a week for take down of the skin graft dressing and for a wound check and for discussion of the pathology report. The sutures will be removed in two weeks. Grafts/Implants Used: None. Procedure Start Time: 08:22 Procedure Stop Time: 09:17 Complications None. Admit VTE Documentation VTE Present on Admission: No VTE Mechan Device Prophylaxis: SCD's VTE Pharm Prophylaxis ordered?: No Addendum Addendum: Surgery Charges CPT - 01109 ICD-10 - L98.492, Z85.828, Z87.2, E11.9, Z87.891 [id number] L98.492, Z85.828, Z87.2, E11.9, Z87.891
--- NOTE | 2023-11-29 09:50 | PCM.DC ---
Discharge Instructions Diet Discharge Diet: Carb Control Diet Activity Discharge Activity: May Drive (when not taking pain medication.), May Shower (place plastic bag over left hand when showering. May remove left flank dressing in two days when showering.) and - (elevate left hand. No heavy lifting.) Return to work on:: 12/06/23 (tentative) May shower in (days): 1 (wear plastic bag over left hand when showering.) May resume sexual activity in: No Restrictions Lifting Restrictions: 20 lbs. Keep extremity elevated above heart level: Left Arm Dressing / Incision Call your doctor if your incision/area has: Continuous Slow Oozing, Sudden Increased Bleeding, Increased Pain/ Swelling, Increased Redness, Foul Smelling Discharge and Swelling at the incision site Call your doctor if you observe: Fever of 101 or Higher, Coldness, Increased Pain, Shortness of breath, Chest pain, Calf discomfort and Uncontrolled pain Change Dressing in: do not change dressing (leave left hand dressing alone. Will remove in the office.) Remove Dressing in: 2 days (left flank dressing only.) Cleanse incision/area with: - (wear plastic bag over left hand when showering.) Follow Up Care Please Follow Up With: Andrea Kumar MD When: one week. call [phone] for appt. Test Results: Test results from this visit will be discussed in further detail at your follow-up appointment, if applicable. Discharge Plan Admission Primary Reason for Your Visit: excision nonhealing graft ulcer from previous SCC left thumb Attending Provider: Andrea uKmar Primary Care Provider: Gasper Kenny Instructions Print Language: Georgian Discharge Orders/Prescriptions Prescriptions: New cefadroxil 500 mg capsule 500 mg PO BID Qty: 14 0RF L.acidoph,saliva-B.bif-S.therm [Acidophilus Probiotic Blend] 175 mg capsule 1 cap PO DAILY Qty: 20 0RF oxycodone-acetaminophen [Percocet] 5-325 mg tablet 1 tab PO Q6H PRN (Reason: pain (scale score 7-10)) 7 Days Qty: 28 0RF Rx Instructions: 28 tabs (twenty-eight) Continued Vabysmo 6 mg/0.05 mL solution 6 mg intravitreal Q4W Patient Comments: RIGHT EYE Eylea 2 mg/0.05 mL syringe 2 mg intravitreal QMONTH Patient Comments: LEFT EYE PreserVision AREDS 4,296 mcg-226 mg-90 mg capsule 1 cap PO DAILY Referrals / Follow Up: Andrea Kumar MD [Med Staff - Active Staff] - In 1 Week Gasper Kenny MD [Primary Care Provider] - Disposition Disposition (needs filled in before D/C Order can be placed): Home, Self Care
== END 2023-11-29 10:50 | disposition home or self-care (01) ==
LOC: SDC 05:55 → AC 05:55
PROVIDERS: PCP Family Medicine; Referring Provider Surgery; Visit Provider Surgery
PROC: (CPT 11423; principal; 2023-11-29 07:15)
DX: T86.828 Other complications of skin graft (allograft) (autograft) (principal); L98.499 Non-pressure chronic ulcer of skin of other sites with unspecified severity; E11.9 Type 2 diabetes mellitus without complications; L57.0 Actinic keratosis; Z87.891 Personal history of nicotine dependence; Z85.828 Personal history of other malignant neoplasm of skin
CPT/HCPCS: 11423; 15240; 00400; 36415; 82962; 83036; 88305; J7120; J2405